=== PATIENT | female | born 1935 | race Caucasian/White ===

== ENCOUNTER 2017-03-20 01:34 | Inpatient (IN) ==
[2017-03-20] MEDS ORDERED: *HR* HYDROmorphone (PF) 1 MG/ML SYRINGE IVP PRN (04:29)
[2017-03-20] MEDS ORDERED: Naloxone 0.4 MG/ML INJ IVP PRN (04:30)
[2017-03-20] MEDS ORDERED: Ondansetron 4 MG/2 ML VIAL IVP PRN (04:30)
--- NOTE | 2017-03-20 05:12 | Internal Med History&Physical ---
<Kishor Purdy - Last Filed: 03/20/17 05:10> Date of Encounter: 03/20/17 Time of Encounter: 05:10 Assessment and Plan (1) Anemia Current visit: Yes Status: Acute Records reviewed from [facility] emergency department showed hemoglobin of 5.9 with an MCV of 89. Hemoccult stool was checked at that time and was found to be negative. CT scan of the abdomen is unremarkable. She received 1 unit of PRBCs in the emergency department, will recheck CBC and transfuse if needed. At this point the source of the patient's anemia is unknown. She does have a history of iron deficiency anemia and takes iron supplementation. Will recheck CBC on arrival. We will initiate anemia workup including repeat Hemoccult stool (patient deferred rectal exam) and will check B12, folate, haptoglobin, LDH, hepatic panel, PTT, PT/INR, TSH, iron panel. Qualifiers: Anemia type: unspecified type Qualified Code(s): D64.9 - Anemia, unspecified (2) CAD (coronary artery disease) Current visit: Yes Status: Acute Stable. No chest pain noted. No EKG changes. Patient states her last stent was approximately 15 years ago. We will hold Plavix at this time. Qualifiers: Coronary Disease-Associated Artery/Lesion type: [place] artery [place] vs. transplanted heart: [place] heart Associated angina: without angina Qualified Code(s): I25.10 - Atherosclerotic heart disease of [place] coronary artery without angina pectoris (3) CKD (chronic kidney disease) Current visit: Yes Status: Acute Creatinine 1.63 in the Emergency department, baseline unknown but records to show that she is CKD stage III. Good urine output, follow creatinine. Anemia of chronic kidney disease could be contributing to the patient's anemia however the degree of anemia is much more substantial than would be expected in anemia of chronic kidney disease. Qualifiers: Chronic kidney disease stage: stage 3 (moderate) Qualified Code(s): N18.3 - Chronic kidney disease, stage 3 (moderate) (4) Nephrolithiasis Current visit: Yes Status: Acute Patient has known kidney stone with microscopic hematuria. No gross hematuria noted. Patient has seen urology recently and she is attempting the past stone on her own. (5) GERD (gastroesophageal reflux disease) Current visit: Yes Status: Acute Continue PPI Qualifiers: Esophagitis presence: esophagitis presence not specified Qualified Code(s) : K21.9 - Gastro-esophageal reflux disease without esophagitis (6) Type 2 diabetes mellitus Current visit: Yes Status: Acute Patient takes glipizide at home. We will hold this and institute sliding scale coverage. Qualifiers: Diabetes mellitus complication status: with unspecified complications Diabetes mellitus usp insulin use: without usp use Qualified Code( s): E11.8 - Type 2 diabetes mellitus with unspecified complications (7) Hypothyroidism Current visit: Yes Status: Acute Check TSH. Continue Synthroid. Qualifiers: Hypothyroidism type: unspecified Qualified Code(s): E03.9 - Hypothyroidism , unspecified (8) Hypertension Current visit: Yes Status: Acute Stable this time. Continue home medications. Qualifiers: Hypertension type: essential hypertension Qualified Code(s): I10 - Essential (primary) hypertension (9) Chronic back pain Current visit: Yes Status: Acute Patient on chronic NSAID use with meloxicam daily. We will hold meloxicam and treat with Dilaudid 0.5 mg every 4 hours when necessary. Qualifiers: Back pain location: low back pain Back pain laterality: unspecified Sciatica presence: without sciatica Qualified Code(s): M54.5 - Low back pain; G89.29 - Other chronic pain (10) DVT prophylaxis Current visit: Yes Status: Acute EPCDs Internal Medicine - H&P: HPI Chief complaint: Weakness Admitted From: Emergency Dept Plans for Post Hospital Care: Home History of present illness: Ms. Alexander is a 82 year old female with history of CAD, CKD, hypertension, hypothyroidism presents with generalized weakness. Patient states she has been feeling weaker and weaker over the last weeks to months. She reports this is generalized. She states she has never felt like this before. She states she has had episodes of loose stools after taking laxatives and those have been black but her stools have been black for several months while taking iron pills. She reports a couple of episodes of nausea but denies any vomiting, hematemesis, hematochezia. She denies any abdominal pain or weight loss, chest pain, shortness of breath, dysuria, hematuria. She does report that she has chronic back pain. She denies any recent falls, numbness, tingling. She reports having a colonoscopy and EGD done approximately 4 years ago and they found 1 colonic polyp but otherwise no abnormalities. Past Med Surg Social Fam HX - Past Medical History Medical history: diabetes, hypertension, myocardial infarction, thyroid disease - Past Surgical History Surgical History: angioplasty/stent - Social History Smoking Status: Never smoker Smokeless Tobacco Status: No Alcohol use: none Drug use: none - Family History Mother Name: Jen Living Status: Age at : 80 Cause of : Diabetes complications Hx Family Cardiac Disorders: Yes Hx Family Respiratory Disorders: No Hx Family Cancer: Yes Hx Family GI Disorders: No Hx Family Genitourinary Disorders: No Hx Family Endocrine Disorder: Yes Hx Family Musculoskeletal Disorders: No Hx Family Neuromuscular Disorders: No Hx Family Neurologic Disorders: No Hx Family HEENT Disorders: No Hx Family Autoimmune Disorders: No Hx Family Reproductive Disorders: No Hx Family Psychosocial Disorders: No Hx Family Medical Disorders: Yes Internal Medicine - H&P: Meds Amlodipine Besylate [Amlodipine Besylate] 10 mg PO DAILY 03/20/17 [History] Antiox #11/Om3/Dha/Epa/Lut/Linh [50+ Adult Eye Health Softgel] 1 each PO BID [History] Carvedilol [Coreg] 25 mg PO BID 03/20/17 [History] Clopidogrel [Plavix] 75 mg PO DAILY 03/20/17 [History] Ergocalciferol (VITAMIN D2) [Vitamin D2] 50,000 unit PO QWEEK 03/20/17 [History] GlipiZIDE [Glipizide Xl] 2.5 mg PO BID 03/20/17 [History] Iron 180 mg PO BID 03/20/17 [History] Isosorbide MONOnitrate (24 HR) [Imdur] 60 mg PO DAILY 03/20/17 [History] Levothyroxine [Synthroid] 25 mcg PO DAILY 03/20/17 [History] Meloxicam 15 mg PO DAILY 03/20/17 [History] Omeprazole 20 mg PO DAILY 03/20/17 [History] Simvastatin [Zocor] 10 mg PO DAILY 03/20/17 [History] Valsartan [Diovan] 160 mg PO DAILY 03/20/17 [History] Allergies No Known Allergies Allergy (Verified 03/08/17 23:04) All Systems PM: A 10-system review of systems was performed and is negative for pertinent findings except as documented above in the HPI. - Constitutional Constitutional: weakness, no chills, no fever(s), no falls, no weight loss - EENT Eyes: no blurry vision, no change in vision Nose, mouth and throat: no sinus pain, no sinus pressure, no sore throat - Cardiovascular Cardiovascular ROS IM: no chest pain, no dyspnea, no edema, no lightheadedness, no syncope - Respiratory Respiratory: no cough, no dyspnea, no hemoptysis, no chest congestion, no excessive phlegm production, no change in phlegm color - Gastrointestinal Gastrointestinal: melena, no abdominal pain, no coffee ground emesis, no diarrhea, no hematemesis, no hematochezia, no nausea, no vomiting - Genitourinary Genitourinary: no dysuria, no hematuria, no menorrhagia, no metrorrhagia, no urinary frequency, no urinary hesitancy, no urinary incontinence, no urinary urgency - Musculoskeletal Musculoskeletal ROS IM: back pain, no neck pain, no numbness, no tingling - Integumentary Integumentary IM: no erythema, no new lesions, no rash - Neurological Neurological ROS: weakness, no dizziness, no frequent falls, no numbness, no tingling - Psychiatric Psychiatric: no confusion - Endocrine Endocrine IM: no polydipsia, no polyuria - Hematologic/Lymphatic Hematologic/Lymphatic: no easy bleeding, no easy bruising, no lymphadenopathy - Constitutional Vitals: Temp Pulse Resp BP Pulse Ox 98.1 F 65 16 121/56 96 03/20/17 03:27 03/20/17 03:27 03/20/17 03:27 03/20/17 03:27 03/20/17 03:27 General appearance: Present: A&O X 3, pleasant, no acute distress Exam: Patient appears generally pale - Head Head exam: Present: atraumatic, normal inspection, normocephalic - Eye Eye exam: Present: EOMI, PERRL Additional comments: Conjunctival pallor - ENT ENT exam: Present: mucous membranes dry, normal oropharynx - Neck Neck exam general surgery: Present: full ROM - Respiratory Respiratory exam: Present: CTAB. Absent: rales, rhonchi, wheezes - Cardiovascular Cardiovascular exam: Present: RRR. Absent: gallop, rubs, systolic murmur - GI/Abdominal GI/Abdominal exam: Present: normal bowel sounds, soft. Absent: distended, tenderness - Rectal Rectal exam: Present: deferred - Extremities Exam Extremities exam: Present: warm. Absent: pedal edema, tenderness - Neurological Exam Neurological exam: Present: alert, CN II-XII intact, oriented X3, no focal deficits - Psychiatric Psychiatric exam: Absent: anxious - Skin Skin exam: Present: pallor <Fanta Dohertylizzierodrigo R - Last Filed: 03/20/17 08:11> Date of Encounter: 03/20/17 Internal Medicine - H&P: HPI History of present illness: Ms. Alexander is a 82 year old female All Systems PM: A 10-system review of systems was performed and is negative for pertinent findings except as documented above in the HPI. - Constitutional Vitals: Temp Pulse Resp BP Pulse Ox 98.1 F 76 18 154/66 98 03/20/17 06:44 03/20/17 06:44 03/20/17 06:44 03/20/17 06:44 03/20/17 06:44 Internal Med - H&P Results - Labs CBC & Chem 7: 03/20/17 05:36 03/20/17 05:36 Labs: Short CBC 03/20/17 Range/Units 05:36 WBC 11.3 H (4.3-11.1) K/mcL Hgb 6.2 L (11.5-15.4) g/dL Hct 19.2 L (35.3-44.9) % Plt Count 159 (140-400) K/mcL Neutrophils # 8.1 (1.6-8.9) K/mcL BMP 03/20/17 05:36 Sodium 136 Potassium 5.4 H Chloride 111 H Carbon Dioxide 21 BUN 69 H Glucose 129 H Calcium 8.1 L Liver Function 03/20/17 Range/Units 05:36 Total Bilirubin 0.3 (0.2-1.2) mg/dL Direct Bilirubin 0.1 (0.0-0.5) mg/dL AST 7 (5-34) Units/L ALT 7 (0-55) Units/L Alkaline Phosphatase 55 (38-126) Units/L Albumin 2.4 L (3.5-5.0) g/dL - Attending Attestation I performed history and physical examination of the patient and discussed management with the Resident. I reviewed the Residents note and agree with documented findings and plan of care. 82 Y/F with h/o CAD, CKD, hypertension, hypothyroidism. She has h/o gradually progressing weakness. h/o chronic black stools. Last night she looked vary pale and had near syncope (per the daughter). She was evaluated in the ER at [facility] and was noted to have Hgb of 5.9. Fecal occult blood was negative. Patient is transferred for further care per patients request. No abdominal pain reported O/E: Patient had present. Lungs clear to auscultation. Cardiac regular rate and rhythm. Abdomen soft and nontender. Labs reviewed. CT scan result reviewed. A/P: Normocytic anemia: Recheck hemoglobin, fecal occult blood. Transfuse PRBC, if Hgb is less than 8. Consider GI versus hematology-oncology consult, depending on fecal occult blood result.
[2017-03-20] MEDS ORDERED: *HR* Dextrose 50 % in Water (Syg) 50 ML SYRINGE IVP PRN (05:28)
[2017-03-20] MEDS ORDERED: Dextrose Gel 15 GM PO PRN ×2 (05:28)
[2017-03-20] MEDS ORDERED: D5% in Water 1,000 ML IVC PRN (05:28)
[2017-03-20 05:48] LABS: Basophils % 0.1 %; Eosinophils # 0.1 K/mcL (0.0-0.6); Eosinophils % 0.4 %; Hematocrit 19.2 % (35.3-44.9); Hemoglobin 6.2 g/dL (11.5-15.4); Immature Granulocytes % 0.6 % (0-4); Lymphocytes # 2.3 K/mcL (0.6-4.6); Lymphocytes % 20.5 %; Mean Corpuscular HGB Conc 32.3 g/dL (31.6-35.5); Mean Corpuscular Hemoglobin 29.7 pg (28.0-33.3); Mean Corpuscular Volume 91.9 fL (83.0-100.0); Mean Platelet Volume 11.3 fL (9.4-12.4); Monocytes # 0.8 K/mcL (0.0-1.3); Monocytes % 6.7 %; Neutrophils # 8.1 K/mcL (1.6-8.9); Platelet Count 159 K/mcL (140-400); Red Blood Count 2.09 M/mcL (3.82-4.97); Red Cell Distribution Width 14.7 % (11.5-14.5); Retculocyte # 0.06 M/mcL (0.05-0.10); Reticulocyte % 2.7 % (1.6-2.8); Segmented Neutrophils % 71.7 %
[2017-03-20 05:51] LABS: Prothrombin Time 11.1 Seconds (9.4-12.1)
[2017-03-20 05:54] LABS: Activated Partial Thrombo Time 22.2 Seconds (26.0-36.0)
[2017-03-20] MEDS: Insulin LISPRO 300 UNITS/3 ML VIAL SQ SCH ×3 (05:57→18:30)
[2017-03-20] MEDS: Pantoprazole 40 MG VIAL IVP SCH (05:57)
[2017-03-20] MEDS: Levothyroxine 25 MCG TABLET PO SCH (05:57)
[2017-03-20] MEDS ORDERED: Pantoprazole 40 MG VIAL IVP SCH (06:00)
[2017-03-20 06:02] LABS: Albumin 2.4 g/dL (3.5-5.0); Albumin/Globulin Ratio 0.8 (1.1-2.2); Bilirubin,Direct 0.1 mg/dL (0.0-0.5); Bilirubin,Indirect 0.2 mg/dL (0.0-1.2); Bilirubin,Total 0.3 mg/dL (0.2-1.2); Calcium 8.1 mg/dL (8.6-10.8); Globulin 3.1 g/dL (2.4-3.5); Magnesium 1.6 mg/dL (1.6-2.6); Potassium 5.4 mEq/L (3.5-4.5); Total Protein 5.5 g/dL (6.0-8.3)
[2017-03-20 06:23] LABS: Thyroid Stimulating Hormone 1.725 mcIU/mL (0.350-4.840)
[2017-03-20 07:02] LABS: Folate 8.1 ng/mL (7.0-31.4)
[2017-03-20] MEDS: Isosorbide MONOnitrate (24 HR) 60 MG TAB.ER.24H PO SCH (08:25)
[2017-03-20] MEDS: amLODIPine 5 MG TABLET PO SCH (08:25)
[2017-03-20] MEDS: Valsartan 160 MG TABLET PO SCH (08:25)
--- NOTE | 2017-03-20 09:38 | Event Note ---
Date of Encounter: 03/20/17 Time of Encounter: 08:45 Patient is an 82y/o female with PMH of CAD, CKD, HTN, Hypothyroidism who is admitted for management of symptomatic anemia. Patient seen and examined with daughter present at bedside. Pt is AAO x 3 but reports of feeling weak and is pale appearing. She denies any specific symptoms apart from generalized weakness. Repeat H&H noted after one unit PRBC transfusion. Will transfuse 2 more units of PRBC. Follow up stool occult and iron studies. Patient already on iron supplements at home. The stool occult prior to patient's transfer was negative. Noted to be hyperkalemic, will obtain EKG and one dose of Kayexalate to be given. Pt denies any discomfort at this time. Will repeat H&H after PRBC transfusion and continue to closely monitor.
[2017-03-20 10:26] LABS: Bilirubin,Urine Negative (Negative); Blood,Urine Trace (Negative); Clarity,Urine Clear (Clear); Color,Urine Yellow (Yellow); Glucose,Urine (UA) Normal (Normal); Ketones,Urine Negative (Negative); Leukocyte Esterase,Urine Trace (Negative); Nitrite,Urine Negative (Negative); Protein,Urine Negative (Neg-Trace); Specific Gravity,Urine 1.016 (1.010-1.025); Urobilinogen,Urine Normal (Normal)
[2017-03-20 10:28] LABS: Bacteria,Urine None Seen per hpf (None-Few); Hyaline Casts,Urine None Seen per lpf (None-Few); RBC,Urine 0-3 per hpf (0-3); Squamous Epithelial Cell,Urine Moderate per lpf (None-Few); WBC,Urine 0-3 per hpf (0-3)
[2017-03-20] MEDS ORDERED: 0.9 % Sodium Chloride 250 ML ONE (11:46)
[2017-03-20 20:23] LABS: Basophils % 0.2 %; Eosinophils # 0.1 K/mcL (0.0-0.6); Eosinophils % 0.8 %; Hematocrit 24.2 % (35.3-44.9); Immature Granulocytes % 0.8 % (0-4); Lymphocytes # 3.2 K/mcL (0.6-4.6); Lymphocytes % 26.1 %; Mean Corpuscular HGB Conc 33.1 g/dL (31.6-35.5); Mean Corpuscular Hemoglobin 28.7 pg (28.0-33.3); Mean Corpuscular Volume 86.7 fL (83.0-100.0); Mean Platelet Volume 11.2 fL (9.4-12.4); Monocytes # 1.3 K/mcL (0.0-1.3); Monocytes % 10.1 %; Neutrophils # 7.7 K/mcL (1.6-8.9); Platelet Count 161 K/mcL (140-400); Red Blood Count 2.79 M/mcL (3.82-4.97); Red Cell Distribution Width 14.8 % (11.5-14.5)
[2017-03-21] MEDS: Insulin LISPRO 300 UNITS/3 ML VIAL SQ SCH ×5 (00:25→21:43)
[2017-03-21 05:08] LABS: Basophils % 0.3 %; Eosinophils # 0.2 K/mcL (0.0-0.6); Eosinophils % 1.5 %; Hematocrit 23.5 % (35.3-44.9); Hemoglobin 7.9 g/dL (11.5-15.4); Immature Granulocytes % 0.7 % (0-4); Lymphocytes # 2.5 K/mcL (0.6-4.6); Lymphocytes % 22.6 %; Mean Corpuscular HGB Conc 33.6 g/dL (31.6-35.5); Mean Corpuscular Hemoglobin 29.4 pg (28.0-33.3); Mean Corpuscular Volume 87.4 fL (83.0-100.0); Mean Platelet Volume 11.5 fL (9.4-12.4); Monocytes # 0.8 K/mcL (0.0-1.3); Neutrophils # 7.6 K/mcL (1.6-8.9); Platelet Count 162 K/mcL (140-400); Red Blood Count 2.69 M/mcL (3.82-4.97); Red Cell Distribution Width 15.8 % (11.5-14.5); Segmented Neutrophils % 67.9 %
[2017-03-21 05:20] LABS: BUN/Creatinine Ratio 49 (6-26); Calcium 8.1 mg/dL (8.6-10.8); Carbon Dioxide 19 mEq/L (19-29); Chloride 116 mEq/L (98-109); Glucose 128 mg/dL (70-99); Magnesium 1.7 mg/dL (1.6-2.6); Osmolality,Calculated 309 (280-300); Phosphorous 3.4 mg/dL (2.3-4.7); Sodium 142 mEq/L (136-145); eGFR For African Americans > 60 (> 60); eGFR For Non-African Americans 51 (> 60)
[2017-03-21 05:21] LABS: Potassium 4.1 mEq/L (3.5-4.5)
[2017-03-21 05:22] LABS: Blood Urea Nitrogen 51 mg/dL (7-20)
[2017-03-21] MEDS: Pantoprazole 40 MG VIAL IVP SCH (05:39)
[2017-03-21] MEDS: Levothyroxine 25 MCG TABLET PO SCH (05:39)
--- NOTE | 2017-03-21 08:25 | Oncology Inp Consult Note ---
<Ralph Merino - Last Filed: 03/21/17 13:43> Date of Encounter: 03/21/17 Time of Encounter: 08:25 Assessment and Plan (1) Anemia Status: Acute Assessment and plan: Since 2006, looking back at her previous lab results patient has been having anemia with hemoglobin around 11-10 however for this time she came in with hemoglobin of 6.2, status post 2 units of PRBC transfusion, hemoglobin improved to 8.0, no signs of active bleeding at this time, haptoglobin is elevated, no significant coagulopathy, normal platelet count, MCV is normal, reticulocyte hemoglobin equivalent is 33.4, elevated ferritin level, iron level is normal, low LDH level, TSH was normal, folate level was normal but low vitamin B12 level , currently getting B12 supplementation by mouth, chronic kidney disease stage III since 2006, stool occult blood test was negative, last colonoscopy/EGD was 4 years ago and the results showed no malignancy or bleeding ulcers. GI was consulted as well, plan is to have EGD/colonoscopy tomorrow, if all testing results come back negative, patient may need a bone marrow biopsy for further investigation for her anemia. Qualifiers: Anemia type: unspecified type Qualified Code(s): D64.9 - Anemia, unspecified - Data of Consult Patient: new to practice Consult date: 03/21/17 Requesting Physician: Tracey Perales MD Primary Care Provider: PCP NO - Consult Narrative Reason for consult: Anemia History of present illness: Ms. Alexander is a 82 year old female with a history of coronary artery disease, chronic anemia, hypertension, hypothyroidism who presented to ER with chief complaint of generalized weakness. Patient states that this started several weeks ago and it was getting worse to the point that her daughter took her to the ER last night. Currently patient is taking iron pill and her stool has been black while she is taking this medication, but she denies episode of hematemesis, hematochezia or hematuria. In the ER patient was found to have a hemoglobin of 6.2 and so far she received 2 units of PRBC during this hospital stay and her hemoglobin improved to 8.0. Patient denies recent history of significant weight loss, night sweats, personal/family history of cancers. Hematology/oncology was consulted for further recommendation for her symptomatic anemia. Past Med Surg Social Fam HX - Past Medical History Medical history: diabetes, hypertension, myocardial infarction, thyroid disease - Past Surgical History Surgical History: angioplasty/stent - Social History Smoking Status: Never smoker Smokeless Tobacco Status: No Alcohol use: none Drug use: none - Family History Mother Name: Jen Living Status: Age at : 80 Cause of : Diabetes complications Hx Family Cardiac Disorders: Yes Hx Family Respiratory Disorders: No Hx Family Cancer: Yes Hx Family GI Disorders: No Hx Family Genitourinary Disorders: No Hx Family Endocrine Disorder: Yes Hx Family Musculoskeletal Disorders: No Hx Family Neuromuscular Disorders: No Hx Family Neurologic Disorders: No Hx Family HEENT Disorders: No Hx Family Autoimmune Disorders: No Hx Family Reproductive Disorders: No Hx Family Psychosocial Disorders: No Hx Family Medical Disorders: Yes Medications and Allergies Allopurinol [Zyloprim 300 MG] 300 mg PO DAILY 03/20/17 [History] Amlodipine Besylate [Amlodipine Besylate] 10 mg PO DAILY 03/20/17 [History] Antiox #11/Om3/Dha/Epa/Lut/Linh [50+ Adult Eye Health Softgel] 1 cap PO BID 03/20 [History] Carvedilol [Coreg] 25 mg PO BID 03/20/17 [History] Clopidogrel [Plavix] 75 mg PO DAILY 03/20/17 [History] Ergocalciferol (VITAMIN D2) [Vitamin D2] 50,000 unit PO QWEEK 03/20/17 [History] Fenofibrate Nanocrystallized [Triglide] 160 mg PO DAILY 03/20/17 [History] Gabapentin [Neurontin] 300 mg PO HS 03/20/17 [History] GlipiZIDE [Glipizide Xl] 5 mg PO BID 03/20/17 [History] Iron Polysaccharide Complex [Pro Fe] 180 mg PO DAILY 03/20/17 [History] Isosorbide MONOnitrate (24 HR) [Imdur] 60 mg PO DAILY 03/20/17 [History] Levothyroxine [Synthroid] 25 mcg PO DAILY 03/20/17 [History] Meloxicam 15 mg PO DAILY 03/20/17 [History] Nitroglycerin [Nitrostat] 0.4 mg SL AD PRN 03/20/17 [History] Omeprazole 20 mg PO DAILY 03/20/17 [History] Ondansetron ODT [Zofran ODT] 4 mg SL Q8HR PRN 03/20/17 [History] Polyethylene Glycol 3350 [Purelax] 17 gm PO DAILY 03/20/17 [History] Promethazine [Phenergan] 25 mg PO Q8HR PRN 03/20/17 [History] Ranitidine HCl [Heartburn Relief] 150 mg PO BID 03/20/17 [History] Simvastatin [Zocor] 10 mg PO DAILY 03/20/17 [History] Valsartan [Diovan] 160 mg PO DAILY 03/20/17 [History] Allergies acetaminophen [From Darvocet-N] Adverse Reaction (Verified 03/20/17 14:49) Nausea atorvastatin [From Lipitor] Adverse Reaction (Verified 03/20/17 14:49) See Comments "Tore my ribs up" propoxyphene [From Darvocet-N] Adverse Reaction (Verified 03/20/17 14:49) Nausea Review of systems: Patient admits worsening generalized weakness and fatigue, denies headache, fever, chill, recent weight loss, night sweats, hemoptysis, hematemesis, hematochezia, hematuria, chest pain, productive cough, nausea/vomiting, abdominal pain, diarrhea or dysuria. Oncology - Exam - Constitutional Vitals: Temp Pulse Resp BP Pulse Ox 98.5 F 70 16 114/62 94 03/21/17 05:13 03/21/17 05:13 03/21/17 05:13 03/21/17 05:13 03/21/17 05:13 General appearance: average body habitus, cooperative, no acute distress - Head Head exam: Present: atraumatic, normal inspection, normocephalic - Eye Eye exam: Present: EOMI, PERRL Pupils: Present: PERRL - ENT ENT exam: Present: mucous membranes dry, normal exam - Neck Neck exam: Present: normal inspection. Absent: lymphadenopathy, tenderness - Respiratory Respiratory exam: Present: CTAB. Absent: rales, respiratory distress, wheezes - Cardiovascular Cardiovascular exam: Present: RRR, +S1, +S2. Absent: clicks, rubs, systolic murmur - GI/Abdominal GI/Abdominal exam: Present: normal bowel sounds, soft. Absent: distended, firm , guarding, mass, rebound, rigid, tenderness - Extremities Exam Extremities exam: Present: normal inspection. Absent: calf tenderness, tenderness - Neurological Exam Neurological exam: Present: alert, CN II-XII intact, oriented X3, no focal deficits. Absent: altered, facial droop - Skin Additional comments: Chronically pale per her daughter Oncology - Results - Labs Labs: Short CBC 03/20/17 03/21/17 Range/Units 20:04 04:41 WBC 12.4 H 11.2 H (4.3-11.1) K/mcL Hgb 8.0 L D 7.9 L (11.5-15.4) g/dL Hct 24.2 L 23.5 L (35.3-44.9) % Plt Count 161 162 (140-400) K/mcL Neutrophils # 7.7 7.6 (1.6-8.9) K/mcL BMP 03/20/17 03/21/17 05:36 04:41 Sodium 142 Potassium 4.1 D Chloride 116 H Carbon Dioxide 19 BUN 51 H D Creatinine 1.25 H 1.04 Glucose 128 H Calcium 8.1 L Urine 03/20/17 Range/Units 09:50 Urine Color Yellow (Yellow) Urine Clarity Clear (Clear) Urine pH 6.0 (5.0-8.0) pH Units Ur Specific [place] 1.016 (1.010-1.025) Urine Protein Negative (Neg-Trace) mg/dL Urine Glucose (UA) Normal (Normal) mg/dL Consult Discharge Plan - Plan Referrals: NO,PCP [Primary Care Provider] - <Linda Grewal - Last Filed: 03/21/17 17:42> Date of Encounter: 03/21/17 - Data of Consult Requesting Physician: Tracey Perales MD Primary Care Provider: PCP NO - Consult Narrative History of present illness: Patient seen and examined by me bedside with family, with progressive weakness patient has been to ER 2 and was not noted to have such a low hemoglobin was hospitalized with profound anemia status post red blood cell transfusion hemoglobin has improved to 7.9. Anemia workup has shown normal ferritin she will undergo GI procedure to rule out acute bleeding, B12 deficiency noted. Rule out pernicious anemia. B12 IM injection has been given. Patient denies any abdominal pain melena or hematochezia or alteration in bowel habits. Plan to monitor lab works with B12 replacement. Order serum protein electrophoresis. Peripheral smear review bone marrow aspiration and biopsy at a later date depending on labs/response. I have seen and examined patient myself, reviewed history physical exam findings as outlined above, discussed and agree with assessment and plan findings per Dr Ralph Merino's dictation. Oncology - Exam - Constitutional Vitals: Temp Pulse Resp BP Pulse Ox 98.5 F 72 18 132/72 95 03/21/17 15:05 03/21/17 15:05 03/21/17 15:05 03/21/17 15:05 03/21/17 15:05 Oncology - Results - Labs Labs: Short CBC 03/20/17 03/21/17 Range/Units 20:04 04:41 WBC 12.4 H 11.2 H (4.3-11.1) K/mcL Hgb 8.0 L D 7.9 L (11.5-15.4) g/dL Hct 24.2 L 23.5 L (35.3-44.9) % Plt Count 161 162 (140-400) K/mcL Neutrophils # 7.7 7.6 (1.6-8.9) K/mcL BMP 03/21/17 04:41 Sodium 142 Potassium 4.1 D Chloride 116 H Carbon Dioxide 19 BUN 51 H D Creatinine 1.04 Glucose 128 H Calcium 8.1 L
[2017-03-21] MEDS: Isosorbide MONOnitrate (24 HR) 60 MG TAB.ER.24H PO SCH (09:09)
[2017-03-21] MEDS: Valsartan 160 MG TABLET PO SCH (09:09)
[2017-03-21] MEDS: amLODIPine 5 MG TABLET PO SCH (09:09)
[2017-03-21] MEDS: Cyanocobalamin (B-12) 1,000 MCG TABLET PO SCH (09:17)
[2017-03-21] MEDS ORDERED: *HR* OxyCODONE Immed Rel 5 MG TABLET PO PRN (09:47)
--- NOTE | 2017-03-21 09:48 | Internal Med Progress Note ---
Date of Encounter: 03/21/17 Time of Encounter: 09:37 - Subjective Interval history: Patient seen and examined with daughter present at bedside. Patient resting comfortably in bed and reports of feeling better. States she had colonoscopy in the past about 3-4 years ago with polyp resection. Denies any prior history of severe anemia requiring blood transfusions. Noted to have negative stool occult and iron studies are not consistent with iron deficiency anemia Noted to have low vitamin B12 level and started on PO Vitamin BI12. Assessment and Plan (1) Anemia Current visit: Yes Status: Acute Reported history of iron deficiency anemia however iron studies not consistent with iron def anemia Noted to have B12 def, will start with PO Vit B12 supplementation Hematology evaluation requested Given the severity of anemia, will obtain GI evaluation and obtain EGD and colonoscopy in am to rule out GI bleed clear liquid diet today with bowel prep and NPO after midnight Qualifiers: Anemia type: unspecified type Qualified Code(s): D64.9 - Anemia, unspecified (2) CAD (coronary artery disease) Current visit: Yes Status: Acute No signs of angina present at this time continue home medications continue to hold Plavix until further GI evaluation Qualifiers: Coronary Disease-Associated Artery/Lesion type: [place] artery [place] vs. transplanted heart: [place] heart Associated angina: without angina Qualified Code(s): I25.10 - Atherosclerotic heart disease of [place] coronary artery without angina pectoris (3) CKD (chronic kidney disease) Current visit: Yes Status: Acute Renal function at baseline, continue to monitor Qualifiers: Chronic kidney disease stage: stage 3 (moderate) Qualified Code(s): N18.3 - Chronic kidney disease, stage 3 (moderate) (4) Nephrolithiasis Current visit: Yes Status: Acute Patient has known kidney stone with microscopic hematuria. No gross hematuria noted. Patient has seen urology recently and she is attempting the past stone on her own. No acute discomfort reported at this time (5) GERD (gastroesophageal reflux disease) Current visit: Yes Status: Acute Continue PPI Qualifiers: Esophagitis presence: esophagitis presence not specified Qualified Code(s) : K21.9 - Gastro-esophageal reflux disease without esophagitis (6) Type 2 diabetes mellitus Current visit: Yes Status: Acute Continue sliding scale insulin algorithm and monitor FS and BG Qualifiers: Diabetes mellitus complication status: with unspecified complications Diabetes mellitus technical support director insulin use: without technical support director use Qualified Code( s): E11.8 - Type 2 diabetes mellitus with unspecified complications (7) Hypothyroidism Current visit: Yes Status: Acute Continue Synthroid. Qualifiers: Hypothyroidism type: unspecified Qualified Code(s): E03.9 - Hypothyroidism , unspecified (8) Hypertension Current visit: Yes Status: Acute BP within acceptable range, continue home medications Will continue to monitor BP Qualifiers: Hypertension type: essential hypertension Qualified Code(s): I10 - Essential (primary) hypertension (9) Chronic back pain Current visit: Yes Status: Acute Reported history but in no distress at this time noted to be on chronic NSAID use with Meloxicam, will hold at this time Oxycodone IR PRN pain Qualifiers: Back pain location: low back pain Back pain laterality: unspecified Sciatica presence: without sciatica Qualified Code(s): M54.5 - Low back pain; G89.29 - Other chronic pain (10) DVT prophylaxis Current visit: Yes Status: Acute EPCDs - Constitutional Vitals: Temp Pulse Resp BP Pulse Ox 98.0 F 75 18 134/68 96 03/21/17 09:01 03/21/17 09:01 03/21/17 09:01 03/21/17 09:01 03/21/17 09:01 General appearance: Present: A&O X 3, pleasant, no acute distress - Head Head exam: Present: atraumatic, normocephalic - Eye Eye exam: Present: normal appearance, conjuntiva pink, sclera anicteric - Respiratory Respiratory exam: Present: CTAB. Absent: accessory muscle use, rales, rhonchi, wheezes - Cardiovascular Cardiovascular exam: Present: RRR, +S1, +S2. Absent: diastolic murmur, gallop, rubs, systolic murmur - GI/Abdominal GI/Abdominal exam: Present: normal bowel sounds, soft, no peritoneal signs. Absent: distended, tenderness - Extremities Exam Extremities exam: Present: warm, radial pulses palpable and symetrical. Absent : calf tenderness - Neurological Exam Neurological exam: Present: alert, oriented X3 - Psychiatric Psychiatric exam: Present: normal affect, normal mood Internal Medicine: Result - Labs CBC & Chem 7: 03/21/17 04:41 03/21/17 04:41 Labs: Short CBC 03/20/17 03/21/17 Range/Units 20:04 04:41 WBC 12.4 H 11.2 H (4.3-11.1) K/mcL Hgb 8.0 L D 7.9 L (11.5-15.4) g/dL Hct 24.2 L 23.5 L (35.3-44.9) % Plt Count 161 162 (140-400) K/mcL Neutrophils # 7.7 7.6 (1.6-8.9) K/mcL BMP 03/20/17 03/21/17 05:36 04:41 Sodium 142 Potassium 4.1 D Chloride 116 H Carbon Dioxide 19 BUN 51 H D Creatinine 1.25 H 1.04 Glucose 128 H Calcium 8.1 L Urine 03/20/17 Range/Units 09:50 Urine Color Yellow (Yellow) Urine Clarity Clear (Clear) Urine pH 6.0 (5.0-8.0) pH Units Ur Specific [place] 1.016 (1.010-1.025) Urine Protein Negative (Neg-Trace) mg/dL Urine Glucose (UA) Normal (Normal) mg/dL - ABG Interpretation ABG results: PT/INR, D-dimer PT 11.1 Seconds (9.4-12.1) 03/20/17 05:36 - VTE Documentation of Mechanical Device: Intermittent pneumatic compression device Consult Discharge Plan - Plan Referrals: NO,PCP [Primary Care Provider] -
--- NOTE | 2017-03-21 10:57 | Electrocardiograph Report ---
[place] [id number] Test Date: 2017-03-20 Pat Name: Evelyne Alexander Department: 112 Room: 2A13 Gender: F Audio Visual Design Engineer: [facility] : 1935 Requested By: Tracey Perales Order Number: [id number] Reading MD: Hossein Robin MD Measurements Intervals [place] Rate: 77 P: 16 CT: 187 QRS: -31 QRSD: 92 T: 72 QT: 388 QTc: 420 Interpretive Statements SINUS RHYTHM WITH SINUS ARRHYTHMIA MARKED LEFT AXIS DEVIATION Electronically Signed On 03-21-2017 10:54:57 EDT by Hossein Robin MD
[2017-03-21] MEDS ORDERED: Insulin LISPRO 300 UNITS/3 ML VIAL SQ SCH (12:00)
--- NOTE | 2017-03-21 12:59 | Gastroenterology Consult Note ---
<Kishor Collins Jose - Last Filed: 03/21/17 12:56> Date of Encounter: 03/21/17 Time of Encounter: 10:35 - Assessment and plan (1) Anemia Current Visit: Yes Status: Acute Assessment and plan: Hgb 6.2 on admission and 7.9 this AM. No melena or hematochezia noted. Iron 158 and FOBT negative. Continue to monitor CBC and transfuse PRBC as needed. Plan for EGd and colonoscopy tomorrow. Clear liquid diet today, no red or purple. NPO at midnight. If unable tolerate NuLytely please use MiraLAX prep. If not clear by 6 AM, give 2 tap water enemas. Qualifiers: Anemia type: unspecified type Qualified Code(s): D64.9 - Anemia, unspecified (2) GERD (gastroesophageal reflux disease) Current Visit: Yes Status: Acute Assessment and plan: Continue PPI. Qualifiers: Esophagitis presence: esophagitis presence not specified Qualified Code(s) : K21.9 - Gastro-esophageal reflux disease without esophagitis - Time Spent With Patient Total time spent is greater than 50% in coordination of care (as documented) at patient's floor/unit and/or counseling patient: GI History of Present Illness - Data of Consult Patient: new to practice Consult date: 03/21/17 Requesting Physician: Tracey Perales MD - Consult Narrative Reason for consult: anemia History of present illness: Ms. Alexander is a 82 year old female with PMHx of DM, HTN, CO, CAD, CKD, presented with generalized weakness. Patient states she has been feeling weaker and weaker over the last weeks to months. She states she has had episodes of loose stools after taking laxatives and those have been black but her stools have been black for several months while taking iron pills. She reports a couple of episodes of nausea but denies any vomiting, hematemesis, hematochezia. She denies fever, chills, chest pain, SOB, abdominal pain. We were consulted to evalute her anemia. On admission Hgb 6.2 and this AM Hgb 7.9. Procedures: Colonoscopy 11/26/2013 Dr. Rayo: Diverticulosis and 3 mm tubular adenoma. EGD 11/26/2013 Dr. Rayo: Erythematous duodenopathy. NSAIDs: Meloxicam Anticoagulation: Plavix Past Med Surg Social Fam HX - Past Medical History Medical history: diabetes, hypertension, myocardial infarction, thyroid disease - Past Surgical History Surgical History: angioplasty/stent - Social History Smoking Status: Never smoker Smokeless Tobacco Status: No Alcohol use: none Drug use: none - Family History Mother Name: Jen Living Status: Age at : 80 Cause of : Diabetes complications Hx Family Cardiac Disorders: Yes Hx Family Respiratory Disorders: No Hx Family Cancer: Yes Hx Family GI Disorders: No Hx Family Genitourinary Disorders: No Hx Family Endocrine Disorder: Yes Hx Family Musculoskeletal Disorders: No Hx Family Neuromuscular Disorders: No Hx Family Neurologic Disorders: No Hx Family HEENT Disorders: No Hx Family Autoimmune Disorders: No Hx Family Reproductive Disorders: No Hx Family Psychosocial Disorders: No Hx Family Medical Disorders: Yes - Gastrointestinal Gastrointestinal: Present: as per HPI - Constitutional Constitutional: as per HPI - EENT Eyes: as per HPI Ears: Present: as per HPI Nose, mouth and throat: Present: as per HPI - Cardiovascular Cardiovascular ROS: Present: as per HPI - Respiratory Respiratory IM: Present: as per HPI - Genitourinary Genitourinary: Absent: change in color, Urinary frequency - Neurological ROS Neurological GI: Present: as per HPI - Hematologic/Lymphatic Hematologic/Lymphatic pediatric: Present: as per HPI - Musculoskeletal Musculoskeletal ROS GI: Present: as per HPI - Integumentary Integumentary GI: Present: as per HPI - Psychiatric ROS Psychiatric GI: Present: as per HPI - Endocrine Endocrine IM: Present: as per HPI - Constitutional Vitals: Temp Pulse Resp BP Pulse Ox 98.9 F 72 20 131/70 95 03/21/17 11:46 03/21/17 11:46 03/21/17 11:46 03/21/17 11:46 03/21/17 11:46 General appearance: Present: cooperative, A&O X 3, no acute distress, answers questions appropriately - Head Head exam: Present: atraumatic, normocephalic - Eye Eye exam: Present: normal appearance, sclera anicteric - ENT ENT exam: Present: mucous membranes moist - Neck Neck exam general surgery: Present: normal inspection, trachea midline - Respiratory Respiratory exam: Present: decreased breath sounds, CTAB. Absent: rales, rhonchi, wheezes - Cardiovascular Cardiovascular exam: Present: RRR, +S1, +S2 - GI/Abdominal GI/Abdominal exam: Present: soft, no peritoneal signs. Absent: distended, firm , guarding, tenderness - Rectal Rectal exam: Present: deferred - Extremities Exam Extremities exam: Present: warm - Neurological Exam Neurological exam: Present: no focal deficits - Psychiatric Psychiatric exam: Present: normal affect, normal mood - Skin Skin exam: Present: dry, intact, normal color, warm Results - Labs CBC & Chem 7: 03/21/17 04:41 03/21/17 04:41 Labs: Last Result Calcium 8.1 mg/dL (8.6-10.8) L 03/21/17 04:41 Iron 158 mcg/dL (50-170) 03/20/17 05:36 % Saturation 75 % (15-50) H 03/20/17 05:36 Transferrin 151 mg/dL (180-382) L 03/20/17 05:36 Ferritin 404 ng/ml (5-204) H 03/20/17 05:36 Vitamin B12 119 pg/mL (213-816) L 03/20/17 05:36 Folate 8.1 ng/mL (7.0-31.4) 03/20/17 05:36 Stool Occult Blood Negative (Negative) 03/20/17 09:50 Entire Visit Hgb 7.9 g/dL (11.5-15.4) L 03/21/17 04:41 Hct 23.5 % (35.3-44.9) L 03/21/17 04:41 PT 11.1 Seconds (9.4-12.1) 03/20/17 05:36 Ferritin 404 ng/ml (5-204) H 03/20/17 05:36 Total Bilirubin 0.3 mg/dL (0.2-1.2) 03/20/17 05:36 AST 7 Units/L (5-34) 03/20/17 05:36 ALT 7 Units/L (0-55) 03/20/17 05:36 Folate 8.1 ng/mL (7.0-31.4) 03/20/17 05:36 - ABG ABG results: PT/INR, D-dimer PT 11.1 Seconds (9.4-12.1) 03/20/17 05:36 Consult Discharge Plan - Plan Referrals: NO,PCP [Primary Care Provider] - <Gul,Toña - Last Filed: 03/21/17 18:56> Date of Encounter: 03/21/17 Time of Encounter: 17:35 - Time Spent With Patient Total time spent is greater than 50% in coordination of care (as documented) at patient's floor/unit and/or counseling patient: GI History of Present Illness - Data of Consult Requesting Physician: Tracey Perales MD - Consult Narrative History of present illness: Ms. Alexander is a 82 year old female - Constitutional Vitals: Temp Pulse Resp BP Pulse Ox 98.5 F 72 18 132/72 95 03/21/17 15:05 03/21/17 15:05 03/21/17 15:05 03/21/17 15:05 03/21/17 15:05 Results - Labs CBC & Chem 7: 03/21/17 04:41 03/21/17 04:41 Labs: Last Result Calcium 8.1 mg/dL (8.6-10.8) L 03/21/17 04:41 Iron 158 mcg/dL (50-170) 03/20/17 05:36 % Saturation 75 % (15-50) H 03/20/17 05:36 Transferrin 151 mg/dL (180-382) L 03/20/17 05:36 Ferritin 404 ng/ml (5-204) H 03/20/17 05:36 Vitamin B12 119 pg/mL (213-816) L 03/20/17 05:36 Folate 8.1 ng/mL (7.0-31.4) 03/20/17 05:36 Stool Occult Blood Negative (Negative) 03/20/17 09:50 Entire Visit Hgb 7.9 g/dL (11.5-15.4) L 03/21/17 04:41 Hct 23.5 % (35.3-44.9) L 03/21/17 04:41 Haptoglobin 213 mg/dL (30-200) H 03/20/17 05:36 PT 11.1 Seconds (9.4-12.1) 03/20/17 05:36 Ferritin 404 ng/ml (5-204) H 03/20/17 05:36 Total Bilirubin 0.3 mg/dL (0.2-1.2) 03/20/17 05:36 AST 7 Units/L (5-34) 05/24/17 05:36 ALT 7 Units/L (0-55) 03/20/17 05:36 Folate 8.1 ng/mL (7.0-31.4) 03/20/17 05:36 - ABG ABG results: PT/INR, D-dimer PT 11.1 Seconds (9.4-12.1) 03/20/17 05:36 - Attending Attestation I examined this patient and my medical decision-making was reviewed with the UX DESIGNER/PA/Advanced Practice Nurse/Resident Physician. I agree with the documented findings, disposition and treatment plan as described except to the extent set forth below.
[2017-03-21] MEDS ORDERED: Cyanocobalamin (B-12) 1,000 MCG/ML VIAL IM ONE (15:31)
[2017-03-21] MEDS ORDERED: SODIUM CHLORIDE/NAHCO3/KCL/PEG 4,000 ML SOLN.RECON PO ONE (17:00)
[2017-03-22 04:31] LABS: Basophils % 0.1 %; Eosinophils # 0.1 K/mcL (0.0-0.6); Eosinophils % 1.4 %; Hematocrit 23.2 % (35.3-44.9); Hemoglobin 7.6 g/dL (11.5-15.4); Immature Granulocytes % 0.7 % (0-4); Lymphocytes # 2.5 K/mcL (0.6-4.6); Lymphocytes % 25.7 %; Mean Corpuscular HGB Conc 32.8 g/dL (31.6-35.5); Mean Corpuscular Hemoglobin 29.1 pg (28.0-33.3); Mean Corpuscular Volume 88.9 fL (83.0-100.0); Mean Platelet Volume 10.4 fL (9.4-12.4); Monocytes # 0.9 K/mcL (0.0-1.3); Monocytes % 9.3 %; Platelet Count 158 K/mcL (140-400); Red Blood Count 2.61 M/mcL (3.82-4.97); Red Cell Distribution Width 15.4 % (11.5-14.5); Segmented Neutrophils % 62.8 %
[2017-03-22 04:42] LABS: BUN/Creatinine Ratio 33 (6-26); Calcium 8.3 mg/dL (8.6-10.8); Carbon Dioxide 23 mEq/L (19-29); Chloride 111 mEq/L (98-109); Glucose 114 mg/dL (70-99); Magnesium 1.4 mg/dL (1.6-2.6); Osmolality,Calculated 294 (280-300); Phosphorous 3.1 mg/dL (2.3-4.7); Sodium 139 mEq/L (136-145); eGFR For African Americans > 60 (> 60); eGFR For Non-African Americans > 60 (> 60)
[2017-03-22 04:46] LABS: Blood Urea Nitrogen 28 mg/dL (7-20)
[2017-03-22] MEDS: Levothyroxine 25 MCG TABLET PO SCH (06:20)
[2017-03-22] MEDS: Pantoprazole 40 MG VIAL IVP SCH (06:20)
[2017-03-22] MEDS ORDERED: Magnesium Sulfate 1 GM in D5% in Water 100 ML IVPB ONE (07:18)
[2017-03-22] MEDS ORDERED: Simethicone 40 MG/0.6 ML MLS IR ONE (07:41)
[2017-03-22] MEDS ORDERED: Tetracaine/Benzocaine/Butamben 200MG/SPRAY (100SPY/BOT) MM ONE (07:41)
[2017-03-22] MEDS ORDERED: 0.9 % Sodium Chloride 500 ML IVC SCH (07:45)
[2017-03-22] MEDS ORDERED: *HR* Midazolam HCl 5 MG/5 ML VIAL IVP ONE (07:47)
[2017-03-22] MEDS ORDERED: *HR* FentaNYL (PF) 100 MCG/2 ML VIAL ONE (07:47)
[2017-03-22] MEDS: amLODIPine 5 MG TABLET PO SCH (08:03)
[2017-03-22] MEDS: Cyanocobalamin (B-12) 1,000 MCG TABLET PO SCH (08:03)
[2017-03-22] MEDS: Isosorbide MONOnitrate (24 HR) 60 MG TAB.ER.24H PO SCH (08:03)
[2017-03-22] MEDS: Valsartan 160 MG TABLET PO SCH (08:03)
--- NOTE | 2017-03-22 08:33 | Internal Med Progress Note ---
Date of Encounter: 03/22/17 Time of Encounter: 08:28 - Subjective Interval history: Patient seen and examined with daughter present at bedside. Pt resting comfortably in bed and denies any discomfort at this time. States she feels better overall. Scheduled for EGD and colonoscopy today. Physical therapy evaluated the patient and recommended home health. Patient and daughter are refusing any home health services at this time and state they have enough help at home and will not be needing any additional services after discharge. Assessment and Plan (1) Anemia Current visit: Yes Status: Acute H&H continues to gradually drop No acute bleeding reported Pt scheduled for EGD and colonoscopy today. GI consultation appreciated Will follow up reports Hematology consultation appreciated Pt may need a bone marrow biopsy if EGD and colonoscopy reports are negative for any acute bleeds. Will continue VIt B12 supplementation continue to closely monitor H&h and transfuse as needed Likely d/c in am pending negative test results from EGD and colonoscopy/ clinically stable Qualifiers: Anemia type: unspecified type Qualified Code(s): D64.9 - Anemia, unspecified (2) CAD (coronary artery disease) Current visit: Yes Status: Acute No signs of angina present at this time continue home medications continue to hold Plavix until further GI evaluation Qualifiers: Coronary Disease-Associated Artery/Lesion type: [place] artery [place] vs. transplanted heart: [place] heart Associated angina: without angina Qualified Code(s): I25.10 - Atherosclerotic heart disease of [place] coronary artery without angina pectoris (3) CKD (chronic kidney disease) Current visit: Yes Status: Acute Renal function at baseline, continue to monitor Qualifiers: Chronic kidney disease stage: stage 3 (moderate) Qualified Code(s): N18.3 - Chronic kidney disease, stage 3 (moderate) (4) Nephrolithiasis Current visit: Yes Status: Acute Patient has known kidney stone with microscopic hematuria. No gross hematuria noted. Patient has seen urology recently and she is attempting the past stone on her own. No acute discomfort reported at this time (5) GERD (gastroesophageal reflux disease) Current visit: Yes Status: Acute Continue PPI Qualifiers: Esophagitis presence: esophagitis presence not specified Qualified Code(s) : K21.9 - Gastro-esophageal reflux disease without esophagitis (6) Type 2 diabetes mellitus Current visit: Yes Status: Acute Continue sliding scale insulin algorithm and monitor FS and BG Qualifiers: Diabetes mellitus complication status: with unspecified complications Diabetes mellitus prison insulin use: without prison use Qualified Code( s): E11.8 - Type 2 diabetes mellitus with unspecified complications (7) Hypothyroidism Current visit: Yes Status: Acute Continue Synthroid. Qualifiers: Hypothyroidism type: unspecified Qualified Code(s): E03.9 - Hypothyroidism , unspecified (8) Hypertension Current visit: Yes Status: Acute BP within acceptable range, continue home medications Will continue to monitor BP Qualifiers: Hypertension type: essential hypertension Qualified Code(s): I10 - Essential (primary) hypertension (9) Chronic back pain Current visit: Yes Status: Acute Reported history but in no distress at this time noted to be on chronic NSAID use with Meloxicam, will hold at this time Oxycodone IR PRN pain Qualifiers: Back pain location: low back pain Back pain laterality: unspecified Sciatica presence: without sciatica Qualified Code(s): M54.5 - Low back pain; G89.29 - Other chronic pain (10) DVT prophylaxis Current visit: Yes Status: Acute EPCDs (11) Hypomagnesemia Current visit: Yes Status: Acute Mg supplemented continue to monitor electrolytes and replace as needed - Constitutional Vitals: Temp Pulse Resp BP Pulse Ox 97.6 F 73 16 133/67 95 03/22/17 06:45 03/22/17 06:45 03/22/17 06:45 03/22/17 06:45 03/22/17 06:45 General appearance: Present: A&O X 3, pleasant, no acute distress, obese - Head Head exam: Present: atraumatic, normocephalic - Eye Eye exam: Present: normal appearance, conjuntiva pink, sclera anicteric - Respiratory Respiratory exam: Present: CTAB. Absent: respiratory distress, wheezes - Cardiovascular Cardiovascular exam: Present: RRR, +S1, +S2. Absent: diastolic murmur, gallop, rubs, systolic murmur - GI/Abdominal GI/Abdominal exam: Present: normal bowel sounds, soft, no peritoneal signs. Absent: distended, tenderness - Extremities Exam Extremities exam: Present: warm, radial pulses palpable and symetrical. Absent : calf tenderness, cyanotic, pedal edema - Neurological Exam Neurological exam: Present: alert, oriented X3 - Psychiatric Psychiatric exam: Present: normal affect, normal mood Internal Medicine: Result - Labs CBC & Chem 7: 05/26/17 04:18 03/22/17 04:18 Labs: Short CBC 03/22/17 Range/Units 04:18 WBC 9.6 (4.3-11.1) K/mcL Hgb 7.6 L (11.5-15.4) g/dL Hct 23.2 L (35.3-44.9) % Plt Count 158 (140-400) K/mcL Neutrophils # 6.0 (1.6-8.9) K/mcL BMP 03/22/17 04:18 Sodium 139 Potassium 4.0 Chloride 111 H Carbon Dioxide 23 BUN 28 H D Creatinine 0.84 Glucose 114 H Calcium 8.3 L - ABG Interpretation ABG results: PT/INR, D-dimer PT 11.1 Seconds (9.4-12.1) 03/20/17 05:36 - VTE Documentation of Mechanical Device: Intermittent pneumatic compression device Consult Discharge Plan - Plan Referrals: NO,PCP [Primary Care Provider] -
[2017-03-22] MEDS: *HR* FentaNYL (PF) 100 MCG/2 ML VIAL IVP PRN ×2 (08:45→09:03)
[2017-03-22] MEDS: *HR* Midazolam HCl 5 MG/5 ML VIAL IVP PRN ×2 (08:45→09:03)
--- NOTE | 2017-03-22 10:17 | Event Note ---
Date of Encounter: 03/22/17 Time of Encounter: 10:00 EGD showed multiple ulcers in the duodenum. Colon prep was poor. Recommendation: Twice a day PPI and Carafate tablet twice a day follow-up with GI as an outpatient. May need colonoscopy with 2 today's prep as an outpatient
[2017-03-22] MEDS: Insulin LISPRO 300 UNITS/3 ML VIAL SQ SCH ×4 (11:01→21:22)
[2017-03-23 05:01] LABS: Basophils % 0.2 %; Eosinophils # 0.1 K/mcL (0.0-0.6); Eosinophils % 1.4 %; Hematocrit 21.9 % (35.3-44.9); Hemoglobin 7.2 g/dL (11.5-15.4); Immature Granulocytes % 0.6 % (0-4); Lymphocytes # 1.8 K/mcL (0.6-4.6); Lymphocytes % 20.9 %; Mean Corpuscular HGB Conc 32.9 g/dL (31.6-35.5); Mean Corpuscular Hemoglobin 29.8 pg (28.0-33.3); Mean Corpuscular Volume 90.5 fL (83.0-100.0); Mean Platelet Volume 10.7 fL (9.4-12.4); Monocytes # 0.8 K/mcL (0.0-1.3); Monocytes % 9.4 %; Neutrophils # 5.9 K/mcL (1.6-8.9); Nucleated Red Blood Cells 0.2 /100 WBC (0); Platelet Count 150 K/mcL (140-400); Red Blood Count 2.42 M/mcL (3.82-4.97); Red Cell Distribution Width 15.2 % (11.5-14.5); Segmented Neutrophils % 67.5 %
[2017-03-23 05:18] LABS: Calcium 8.3 mg/dL (8.6-10.8); Magnesium 1.7 mg/dL (1.6-2.6); Phosphorous 3.8 mg/dL (2.3-4.7); Potassium 4.2 mEq/L (3.5-4.5)
[2017-03-23] MEDS: Pantoprazole 40 MG VIAL IVP SCH (06:20)
[2017-03-23] MEDS: Levothyroxine 25 MCG TABLET PO SCH (06:20)
[2017-03-23 08:00] LABS: Basophils % 0.1 %; Eosinophils # 0.2 K/mcL (0.0-0.6); Eosinophils % 1.6 %; Hematocrit 23.6 % (35.3-44.9); Hemoglobin 7.5 g/dL (11.5-15.4); Immature Granulocytes % 0.5 % (0-4); Lymphocytes # 2.1 K/mcL (0.6-4.6); Lymphocytes % 22.1 %; Mean Corpuscular HGB Conc 31.8 g/dL (31.6-35.5); Mean Corpuscular Hemoglobin 29.2 pg (28.0-33.3); Mean Corpuscular Volume 91.8 fL (83.0-100.0); Mean Platelet Volume 10.7 fL (9.4-12.4); Monocytes # 0.8 K/mcL (0.0-1.3); Monocytes % 8.7 %; Neutrophils # 6.2 K/mcL (1.6-8.9); Platelet Count 159 K/mcL (140-400); Red Blood Count 2.57 M/mcL (3.82-4.97); Red Cell Distribution Width 14.9 % (11.5-14.5)
[2017-03-23] MEDS: amLODIPine 5 MG TABLET PO SCH (08:51)
[2017-03-23] MEDS: Valsartan 160 MG TABLET PO SCH (08:51)
[2017-03-23] MEDS: Cyanocobalamin (B-12) 1,000 MCG TABLET PO SCH (08:51)
[2017-03-23] MEDS: Isosorbide MONOnitrate (24 HR) 60 MG TAB.ER.24H PO SCH (08:51)
[2017-03-23] MEDS: Insulin LISPRO 300 UNITS/3 ML VIAL SQ SCH ×3 (08:52→18:23)
--- NOTE | 2017-03-23 09:59 | Discharge Summary ---
Date of Encounter: 03/23/17 Time of Encounter: 09:55 - Discharge Diagnosis (1) Anemia Priority: Primary Status: Acute Qualifiers: Anemia type: unspecified type Qualified Code(s): D64.9 - Anemia, unspecified (2) CAD (coronary artery disease) Priority: Secondary Status: Chronic Qualifiers: Coronary Disease-Associated Artery/Lesion type: [place] artery [place] vs. transplanted heart: [place] heart Associated angina: without angina Qualified Code(s): I25.10 - Atherosclerotic heart disease of [place] coronary artery without angina pectoris (3) CKD (chronic kidney disease) Priority: Secondary Status: Chronic Qualifiers: Chronic kidney disease stage: stage 3 (moderate) Qualified Code(s): N18.3 - Chronic kidney disease, stage 3 (moderate) (4) DVT prophylaxis Priority: Secondary Status: Acute (5) GERD (gastroesophageal reflux disease) Priority: Secondary Status: Chronic Qualifiers: Esophagitis presence: esophagitis presence not specified Qualified Code(s) : K21.9 - Gastro-esophageal reflux disease without esophagitis (6) Hypertension Priority: Secondary Status: Chronic Qualifiers: Hypertension type: essential hypertension Qualified Code(s): I10 - Essential (primary) hypertension (7) Hypothyroidism Priority: Secondary Status: Chronic Qualifiers: Hypothyroidism type: unspecified Qualified Code(s): E03.9 - Hypothyroidism , unspecified (8) Type 2 diabetes mellitus Priority: Secondary Status: Chronic Qualifiers: Diabetes mellitus complication status: with unspecified complications Diabetes mellitus termination clerk insulin use: without nursing home use Qualified Code( s): E11.8 - Type 2 diabetes mellitus with unspecified complications - Discharge Medications Prescriptions: Cyanocobalamin (B-12) [Vitamin B12] 1,000 mcg PO DAILY #30 tablet Omeprazole 40 mg PO BID #60 tablet. Sucralfate [Carafate] 1 gm PO QIDAC #60 tablet Home Medications: Allopurinol [Zyloprim 300 MG] 300 mg PO DAILY 03/20/17 [History] Amlodipine Besylate 10 mg PO DAILY 03/20/17 [History] Antiox #11/Om3/Dha/Epa/Lut/Linh [50+ Adult Eye Health Softgel] 1 cap PO BID 03/20 [History] Carvedilol [Coreg] 25 mg PO BID 03/20/17 [History] Clopidogrel [Plavix] 75 mg PO DAILY 03/20/17 [History] Ergocalciferol (VITAMIN D2) [Vitamin D2] 50,000 unit PO QWEEK 03/20/17 [History] Fenofibrate Nanocrystallized [Triglide] 160 mg PO DAILY 03/20/17 [History] Gabapentin [Neurontin] 300 mg PO HS 03/20/17 [History] GlipiZIDE [Glipizide Xl] 5 mg PO BID 03/20/17 [History] Iron Polysaccharide Complex [Pro Fe] 180 mg PO DAILY 03/20/17 [History] Isosorbide MONOnitrate (24 HR) [Imdur] 60 mg PO DAILY 03/20/17 [History] Levothyroxine [Synthroid] 25 mcg PO DAILY 03/20/17 [History] Meloxicam 15 mg PO DAILY 03/20/17 [History] Nitroglycerin [Nitrostat] 0.4 mg SL AD PRN 03/20/17 [History] Ondansetron ODT [Zofran ODT] 4 mg SL Q8HR PRN 03/20/17 [History] Polyethylene Glycol 3350 [Purelax] 17 gm PO DAILY 03/20/17 [History] Promethazine [Phenergan] 25 mg PO Q8HR PRN 03/20/17 [History] Ranitidine HCl [Heartburn Relief] 150 mg PO BID 03/20/17 [History] Simvastatin [Zocor] 10 mg PO DAILY 03/20/17 [History] Valsartan [Diovan] 160 mg PO DAILY 03/20/17 [History] Cyanocobalamin (B-12) [Vitamin B12] 1,000 mcg PO DAILY #30 tablet 03/23/17 [Rx] Omeprazole 40 mg PO BID #60 tablet. 03/23/17 [Rx] Sucralfate [Carafate] 1 gm PO QIDAC #60 tablet 03/23/17 [Rx] Allergies/Adverse Reactions: Allergies acetaminophen [From Darvocet-N] Adverse Reaction (Verified 03/20/17 14:49) Nausea atorvastatin [From Lipitor] Adverse Reaction (Verified 03/20/17 14:49) See Comments "Tore my ribs up" propoxyphene [From Darvocet-N] Adverse Reaction (Verified 03/20/17 14:49) Nausea Date of admission: 03/20/17 08:05 Primary care physician: PCP NO Consults: 03/21/17 07:39 Consult to Physical Therapy [CONS] Routine Comment: Evaluate, develop and implement POC Reason for Consult: evaluation for disposition at discharge 03/21/17 07:40 Consult to Oncology Hematology [CONS] Routine Consulting Provider: Linda Grewal Reason for Consult: anemia Call Completed: Yes 03/21/17 09:36 Consult to Gastroenterology [CONS] Routine Consulting Provider: Gastroenterology Nella Reason for Consult: anemia-rule out GI bleed Call Completed: Yes Discharging clinician: Tracey Perales Anticipated date of discharge: 03/23/17 - Patient Status Disposition: Home, Self-Care Condition: Good Functional capacity at discharge: uses cane/walker Overall status at discharge: patient is back to baseline - Discharge Instructions Follow Up With: Shelly Mendenhall [Advanced Practice Nurse] - 04/03/17 10:30 am Additional Instructions: Please follow up with your primary care physician, community liaison officer, and make up worker within one week after your discharge from the hospital. Please obtain the prescribed lab work prior to your appointment with your primary care physician. Your home dose of omeprazole has been increased to 40mg twice a day. Sucralafate has been added to your home medications. Vitamin B12 has been added to your home medications. Please continue to hold Plavix until your follow up with your primary care physician. Please resume all your other home medications as prescribed by your primary care physician. please seek medical help immediately if you have any acute bleeding. - Diet and Activity Activity: resume usual activities as tolerated Diet: diabetic diet, low salt diet Hospital course: Ms. Alexander is a 82 year old female with PMH of CAD, CKD, hypertension, anemia, hypothyroidism who was admitted for management of symptomatic anemia. patient was noted to have hgb of 5.9 and received 3units of PRBC. She was evaluated by GI and underwent EGD and colonoscopy. EGD showed non bleeding duodenal ulcers and colonoscopy was indeterminate due to poor bowel prep. Pt had a negative stool occult despite the anemia. Hematology was also consulted and possible bone marrow biopsy is to be considered if full GI work up is negative. Pt continues to have drop in H&H however remains hemodynamically stable. she reports of feeling well and denies any acute bleeding or distress. Physical therapy evaluated the patient and home health was recommended. Patient states she lives with family and does not need any home health services and refused a social scientist eval. She is noted to have a drop in H&H this morning, however wishes to be discharged to home with further care as outpatient. Pt will be transfused two units PRBC and will be discharged to home with follow up with GI , PCP, and hematology. Pt and family demonstrate understanding of her diagnosis and agree with the care plan. - Time Spent with Patient Total time spent providing and/or coordinating discharge services: Greater than 30 minutes - Constitutional Vitals: Temp Pulse Resp BP Pulse Ox 98.4 F 79 16 132/66 95 03/23/17 06:41 03/23/17 06:41 03/23/17 06:41 03/23/17 06:41 03/23/17 06:41 General appearance: Present: A&O X 3, pleasant, no acute distress, obese - Head Head exam: Present: atraumatic, normocephalic - Eye Eye exam: Present: normal appearance, conjuntiva pink, sclera anicteric - Respiratory Respiratory exam: Present: CTAB. Absent: accessory muscle use, rales, rhonchi, wheezes - Cardiovascular Cardiovascular exam: Present: RRR, +S1, +S2. Absent: diastolic murmur, gallop, rubs, systolic murmur - GI/Abdominal GI/Abdominal exam: Present: normal bowel sounds, soft, no peritoneal signs. Absent: distended, tenderness - Extremities Exam Extremities exam: Present: warm, radial pulses palpable and symetrical. Absent : calf tenderness, cyanotic, pedal edema - Neurological Exam Neurological exam: Present: alert, oriented X3 - Psychiatric Psychiatric exam: Present: normal affect, normal mood - VTE Documentation of Mechanical Device: Intermittent pneumatic compression device
[2017-03-23] MEDS ORDERED: 0.9 % Sodium Chloride 250 ML ONE ×2 (10:26→16:53)
[2017-03-23] MEDS: Sucralfate 1 GM TABLET PO SCH ×2 (13:11→18:24)
[2017-03-23 20:16] VITALS: BP 125/71
[2017-03-25 01:27] LABS: Alpha 2 Globulin (PEP) 0.76 g/dL (0.48-1.05); Beta Globulin (PEP) 0.63 g/dL (0.48-1.10)
[2017-03-26 08:43] LABS: IFE Reflexed IFE Done; Immunoglobulin A 223 mg/dL (68-408)
[2017-03-26 08:44] LABS: Immunoglobulin G 759 mg/dL (768-1632); Immunoglobulin M 34 mg/dL (35-263)
== END 2017-03-23 20:17 | disposition home or self-care (01) | DRG 812 ==
LOC: 2ANU
PROVIDERS: ADMIT Internal Medicine; ATTEND Internal Medicine
PROC: ENDOEBX (2017-03-22 11:00)

== ENCOUNTER 2017-09-05 09:13 | Inpatient (IN) ==
[2017-09-05] MEDS ORDERED: Ondansetron 4 MG/2 ML VIAL IVP ONE (09:46)
[2017-09-05] MEDS ORDERED: 0.9 % Sodium Chloride 1,000 ML IVC ONE (09:46)
[2017-09-05] MEDS ORDERED: *HR* Morphine 2 MG/ML SYRINGE IVP ONE (09:46)
--- NOTE | 2017-09-05 09:52 | Emergency Department Note ---
Disposition Clinical Impression: Pancreatitis Qualifiers: Chronicity: acute Pancreatitis type: unspecified pancreatitis type Acute pancreatitis complication: unspecified Qualified Code(s): K85.90 - Acute pancreatitis without necrosis or infection, unspecified Disposition: Admitted As Inpatient Time of Disposition: 13:08 General Adult HPI - General Chief complaint: ED Dizziness Stated complaint: Dizziness,ABD Pain Time Seen by Provider: 09/05/17 09:26 Source: patient Limitations: no limitations Nursing Notes Reviewed: Yes Vital Signs Reviewed: Yes - History of Present Illness HPI Narrative: 82-year-old female past medical history of CAD with stent placement, anemia, hypothyroidism, presents to the emergency department with epigastric abdominal pain, weakness, and lightheadedness. Patient's daughter states that the last time patient had any weakness was when she had to get a blood transfusion back in February due to low hemoglobin levels. Patient admits to not having this abdominal pain at that time though. Patient reports having an episode of nausea associated with her epigastric pain. Patient denies any melenic school stools or any hematochezia. Patient states that oncology worked her up and they cannot find a reason for anemia. Patient did not receive a colonoscopy that was scheduled. The patient denies any current chest pain, pressure, tightness. Patient denies any fluttering of her heart. Patient denies any shortness of breath. Pain Scale: 2 - Related Data Home Medications Medication Instructions Recorded Confirmed Amlodipine Besylate 10 mg PO DAILY 03/20/17 03/20/17 Antiox #11/Om3/Dha/Epa/Lut/Linh 1 cap PO BID 03/20/17 03/20/17 [50+ Adult Eye Health Softgel] Carvedilol [Coreg] 25 mg PO BID 03/20/17 03/20/17 Clopidogrel [Plavix] 75 mg PO DAILY 03/20/17 03/20/17 Ergocalciferol (VITAMIN D2) 50,000 unit PO QWEEK 03/20/17 03/20/17 [Vitamin D2] Gabapentin [Neurontin] 300 mg PO HS 03/20/17 03/20/17 GlipiZIDE [Glipizide Xl] 5 mg PO BID 03/20/17 03/20/17 Iron Polysaccharide Complex [Pro 180 mg PO DAILY 03/20/17 03/20/17 Fe] Isosorbide MONOnitrate (24 HR) 60 mg PO DAILY 03/20/17 03/20/17 [Imdur] Levothyroxine [Synthroid] 25 mcg PO DAILY 03/20/17 03/20/17 Ranitidine HCl [Heartburn Relief] 150 mg PO BID 03/20/17 03/20/17 Simvastatin [Zocor] 10 mg PO DAILY 03/20/17 03/20/17 Valsartan [Diovan] 160 mg PO DAILY 03/20/17 03/20/17 Omeprazole [PriLOSEC] 20 mg PO DAILY 09/05/17 09/05/17 Previous Rx's Medication Instructions Recorded Cyanocobalamin (B-12) [Vitamin B12] 1,000 mcg PO DAILY #30 tablet 05/27/17 Cyclobenzaprine [Flexeril] 10 mg PO TID PRN #21 tablet 05/27/17 Pantoprazole Sodium [Protonix] 40 mg PO DAILY #30 tablet. 05/27/17 Allergies Allergy/AdvReac Type Severity Reaction Status Date / Time atorvastatin [From Lipitor] AdvReac See Verified 09/05/17 09:16 Comments propoxyphene AdvReac Nausea Verified 09/05/17 09:16 [From Darvocet-N] All systems ED: reviewed and negative except as stated. Review of Systems: As Per HPI Constitutional: Denies: fever Cardiovascular: Reports: other (Lightheadedness). Denies: chest pain, palpitations Respiratory: Denies: cough Gastrointestinal: Reports: abdominal pain, nausea. Denies: diarrhea, constipation, melena, hematochezia Genitourinary: Denies: urgency, dysuria, frequency, hematuria Musculoskeletal: Denies: back pain Past Medical History - Past Medical History Medical history: Reports: diabetes, hypertension, myocardial infarction, thyroid disease Surgical history: Reports: angioplasty/stent Psychiatric history: Reports: no psych history STRUCTURAL STEEL WORKER history: Reports: no STRUCTURAL STEEL WORKER history - Social History Smoking Status: Never smoker Smokeless Tobacco Status: No Alcohol use: Reports: none Drug use: Reports: none Physical Exam General: Pale, 82-year-old female who appears to be in no acute distress Head: autraumatic, EOMI, no conjuncitval pallor, no scleral icterus, Mouth: oral mucous membranes moist Neck: neck soft, trachea midline Chest:: Equal chest wall rise Lungs: Normal lungs sounds bilaterally, no wheezes, no respiratory distress Heart: normal heart sounds, normal rate and rhythm, Abdomen: soft, mild tenderness to palpation of the epigastrium, negative Blevins sign, no rigidity, no guarding, no rebdound tenderness Lower Extremities: no pedal edema, calves non-tender Integumentary: Skin warm, dry, and intact Neuro: Alert Psych: normal affect, normal mood - General Limitations: no limitations General appearance: alert Course Vital Signs Temperature 97.3 F L 09/05/17 09:16 Pulse Rate 46 09/05/17 09:16 Respiratory Rate 20 09/05/17 09:16 Blood Pressure 96/48 09/05/17 09:16 O2 Sat by Pulse Oximetry 96 09/05/17 09:16 Temperature 97.3 F L 09/05/17 09:16 Pulse Rate 54 09/05/17 10:24 Respiratory Rate 18 09/05/17 12:43 Blood Pressure 110/55 09/05/17 12:43 O2 Sat by Pulse Oximetry 95 09/05/17 10:24 Oxygen Delivery Oxygen Delivery Room Air Medical Decision Making - [facility] Narrative Medical decision making narrative: 82-year-old female presents to the emergency department with generalized weakness and epigastric abdominal pain. Patient has a history of anemia in the spell today on physical exam. We will obtain a CBC to rule out any need for transfusion as this patient has needed transfusions in the past. We will obtain electrocardiogram as this patient is bradycardic. We will also obtain a CMP, lipase, troponin, chest x-ray, CT scan of the abdomen and pelvis. We are providing this patient with fluids as well as analgesia and antiemetic. Patient's CT scan does not reveal any acute finding in the abdomen or pelvis. His chronic mild prominence of the intrahepatic bile ducts that are not changed since February of this year. The patient does have an elevated lipase of 8118. Patient denies any consumption of alcohol or any nonsteroidal anti- inflammatories. There is some concern for mild distention of the gallbladder, but patient has a negative Blevins sign on physical exam and is not complaining of any right upper quadrant abdominal pain. States he consider ultrasound for further evaluation. I recommend that to be performed inpatient. I have spoken to the hospitalist about admission of this patient for pancreatitis. He agrees to accept the admission. I discussed this with the patient and her daughter and they agree with the plan of admission. Patient is being given normal saline as well as analgesia and anti-emetics. Abdomen/Pelvis CT 09/05/17 09:45 IMPRESSION: 1. No acute finding in the abdomen or pelvis to account for patient's abdominal pain. 2. Chronic mild prominence of the intrahepatic bile ducts, not significantly changed since February 2017. 3. Mild distention of the gallbladder. If patient has right upper quadrant abdominal pain, consider ultrasound for further evaluation. 4. Sigmoid diverticulosis. No evidence of diverticulitis. D/ / 09/05/2017 12:09:09 Anatoliy Langley MD / Amairani Junior Interpreting Provider: Anatoliy Langley MD Chest X-Ray 09/05/17 09:45 IMPRESSION: Stable mild cardiomegaly. No acute pulmonary disease. D/ / Michele Jang MD / Michele Jang MD Interpreting Provider: Michele Jang MD Vital Signs Temperature 97.3 F L 09/05/17 09:16 Pulse Rate 46 09/05/17 09:16 Respiratory Rate 20 09/05/17 09:16 Blood Pressure 96/48 09/05/17 09:16 O2 Sat by Pulse Oximetry 96 09/05/17 09:16 Temperature 97.3 F L 09/05/17 09:16 Pulse Rate 54 09/05/17 10:24 Respiratory Rate 16 09/05/17 10:24 Blood Pressure 111/50 09/05/17 10:24 O2 Sat by Pulse Oximetry 95 09/05/17 10:24 Oxygen Delivery Oxygen Delivery Room Air - Medical Records Medical records reviewed: Yes I reviewed the patient's medical records. - Lab Data Lab results reviewed: Yes I reviewed the patient's lab results. Result diagrams: 09/05/17 09:45 09/05/17 09:45 Lab Results 09/05/17 09/05/17 09/05/17 Range/Units 09:45 09:45 09:45 WBC 10.6 (4.3-11.1) K/mcL RBC 3.83 (3.82-4.97) M/mcL Hgb 10.9 L (11.5-15.4) g/dL Hct 34.6 L (35.3-44.9) % MCV 90.3 (83.0-100.0) fL MCH 28.5 (28.0-33.3) pg MCHC 31.5 L (31.6-35.5) g/dL RDW 14.7 H (11.5-14.5) % Plt Count 150 (140-400) K/mcL MPV 12.1 (9.4-12.4) fL Immature Gran % 0.8 (0-4) % Seg Neutrophils % 78.5 % Lymphocytes % 14.5 % Monocytes % 5.2 % Eosinophils % 0.8 % Basophils % 0.2 % Neutrophils # 8.3 (1.6-8.9) K/mcL Lymphocytes # 1.5 (0.6-4.6) K/mcL Monocytes # 0.6 (0.0-1.3) K/mcL Eosinophils # 0.1 (0.0-0.6) K/mcL Basophils # 0.0 (0.0-0.2) K/mcL Immature Plt Fraction 9.3 H (1.1-6.1) % Sodium 138 (136-145) mEq/L Potassium 5.1 H (3.5-4.5) mEq/L Chloride 107 (98-109) mEq/L Carbon Dioxide 22 (19-29) mEq/L BUN 25 H (7-20) mg/dL Creatinine 1.35 H (0.57-1.11) mg/dL Est GFR ( Amer) 46 L (> 60) Est GFR (Non-Af Amer) 38 L (> 60) BUN/Creatinine Ratio 19 (6-26) Glucose 212 H (70-99) mg/dL Calculated Osmolality 297 (280-300) Calcium 8.8 (8.6-10.8) mg/dL Total Bilirubin 0.7 (0.2-1.2) mg/dL AST 46 H (5-34) Units/L ALT 24 (0-55) Units/L Alkaline Phosphatase 84 (38-126) Units/L Troponin I 0.01 (0-0.03) ng/mL Serum Total Protein 6.6 (6.0-8.3) g/dL Albumin 2.9 L (3.5-5.0) g/dL Globulin 3.7 H (2.4-3.5) g/dL Albumin/Globulin Ratio 0.8 L (1.1-2.2) Lipase 8118 H (8-78) Units/L TSH 4.222 (0.350-4.840) mcIU/mL Urine Color (Yellow) Urine Clarity (Clear) Urine pH (5.0-8.0) pH Units Ur Specific [place] (1.010-1.025) Urine Protein (Neg-Trace) mg/dL Urine Glucose (UA) (Normal) mg/dL Urine Ketones (Negative) mg/dL Urine Blood (Negative) Urine Nitrite (Negative) Urine Bilirubin (Negative) Urine Urobilinogen (Normal) mg/dL Ur Leukocyte Esterase (Negative) Urine Microscopic RBC (0-3) per hpf Urine Microscopic WBC (0-3) per hpf Ur Squamous Epith Cells (None-Few) per lpf Urine Bacteria (None-Few) per hpf Hyaline Casts (None-Few) per lpf Ur Culture Indicated? (NO) Blood Type Antibody Screen 09/05/17 09/05/17 Range/Units 09:45 11:50 WBC (4.3-11.1) K/mcL RBC (3.82-4.97) M/mcL Hgb (11.5-15.4) g/dL Hct (35.3-44.9) % MCV (83.0-100.0) fL MCH (28.0-33.3) pg MCHC (31.6-35.5) g/dL RDW (11.5-14.5) % Plt Count (140-400) K/mcL MPV (9.4-12.4) fL Immature Gran % (0-4) % Seg Neutrophils % % Lymphocytes % % Monocytes % % Eosinophils % % Basophils % % Neutrophils # (1.6-8.9) K/mcL Lymphocytes # (0.6-4.6) K/mcL Monocytes # (0.0-1.3) K/mcL Eosinophils # (0.0-0.6) K/mcL Basophils # (0.0-0.2) K/mcL Immature Plt Fraction (1.1-6.1) % Sodium (136-145) mEq/L Potassium (3.5-4.5) mEq/L Chloride (98-109) mEq/L Carbon Dioxide (19-29) mEq/L BUN (7-20) mg/dL Creatinine (0.57-1.11) mg/dL Est GFR ( Amer) (> 60) Est GFR (Non-Af Amer) (> 60) BUN/Creatinine Ratio (6-26) Glucose (70-99) mg/dL Calculated Osmolality (280-300) Calcium (8.6-10.8) mg/dL Total Bilirubin (0.2-1.2) mg/dL AST (5-34) Units/L ALT (0-55) Units/L Alkaline Phosphatase (38-126) Units/L Troponin I (0-0.03) ng/mL Serum Total Protein (6.0-8.3) g/dL Albumin (3.5-5.0) g/dL Globulin (2.4-3.5) g/dL Albumin/Globulin Ratio (1.1-2.2) Lipase (8-78) Units/L TSH (0.350-4.840) mcIU/mL Urine Color Yellow (Yellow) Urine Clarity Cloudy A (Clear) Urine pH 5.5 (5.0-8.0) pH Units Ur Specific [place] 1.018 (1.010-1.025) Urine Protein Negative (Neg-Trace) mg/dL Urine Glucose (UA) Normal (Normal) mg/dL Urine Ketones Negative (Negative) mg/dL Urine Blood Negative (Negative) Urine Nitrite Positive A (Negative) Urine Bilirubin Negative (Negative) Urine Urobilinogen Normal (Normal) mg/dL Ur Leukocyte Esterase Negative (Negative) Urine Microscopic RBC 0-3 (0-3) per hpf Urine Microscopic WBC 0-3 (0-3) per hpf Ur Squamous Epith Cells Many H (None-Few) per lpf Urine Bacteria Many H (None-Few) per hpf Hyaline Casts None Seen (None-Few) per lpf Ur Culture Indicated? YES A (NO) Blood Type O NEGATIVE Antibody Screen NEGATIVE - Radiology Data Radiology results reviewed: Yes I reviewed the patient's radiology results. - EKG Data EKG #1 EKG attestation: Yes I reviewed and interpreted this EKG. EKG results narrative: 9:52 Ventricular rate 46 bpm, TN interval 250 ms, QRS duration 90 ms, QTC 532 ms. Sinus bradycardia with first-degree AV block and left axis deviation. There are no ischemic changes noted on this electrocardiogram. First-degree AV block is new. This is a comparison to an electrocardiogram performed on March 20, 2017.
[2017-09-05 10:02] LABS: Basophils % 0.2 %; Eosinophils # 0.1 K/mcL (0.0-0.6); Eosinophils % 0.8 %; Hematocrit 34.6 % (35.3-44.9); Hemoglobin 10.9 g/dL (11.5-15.4); Immature Granulocytes % 0.8 % (0-4); Immature Platelets 9.3 % (1.1-6.1); Lymphocytes # 1.5 K/mcL (0.6-4.6); Lymphocytes % 14.5 %; Mean Corpuscular HGB Conc 31.5 g/dL (31.6-35.5); Mean Corpuscular Hemoglobin 28.5 pg (28.0-33.3); Mean Corpuscular Volume 90.3 fL (83.0-100.0); Mean Platelet Volume 12.1 fL (9.4-12.4); Monocytes # 0.6 K/mcL (0.0-1.3); Monocytes % 5.2 %; Neutrophils # 8.3 K/mcL (1.6-8.9); Platelet Count 150 K/mcL (140-400); Red Blood Count 3.83 M/mcL (3.82-4.97); Red Cell Distribution Width 14.7 % (11.5-14.5); Segmented Neutrophils % 78.5 %
[2017-09-05 10:18] LABS: Albumin 2.9 g/dL (3.5-5.0); Albumin/Globulin Ratio 0.8 (1.1-2.2); Bilirubin,Total 0.7 mg/dL (0.2-1.2); Calcium 8.8 mg/dL (8.6-10.8); Globulin 3.7 g/dL (2.4-3.5); Potassium 5.1 mEq/L (3.5-4.5); Total Protein 6.6 g/dL (6.0-8.3)
[2017-09-05 10:38] LABS: Thyroid Stimulating Hormone 4.222 mcIU/mL (0.350-4.840)
--- NOTE | 2017-09-05 11:00 | Emergency Department Note ---
START Narrative - START START: I examined this patient and my medical decision-making was reviewed with the GUITAR REPAIR TECHNICIAN/PA/Advanced Practice Nurse/Resident Physician. I agree with the documented findings, disposition and treatment plan as described except to the extent set forth below. ED attending: Patient's emergency medicine resident Dr. Talat Willard. Please see copy of this note for H&P evaluation and management and ED disposition. We both had independent [id number] time in contact with this patient. Briefly: 82-year-old female brought in for weakness and abdominal pain. Prior history currently being worked up of anemia of unclear ideology requiring transfusion this past February when her hemoglobin dropped to 5. Patient denies chest pain or vomiting shortness of breath fever chills or new medicines. Patient is hypotensive with a systolic in the mid 90s. She is getting IV fluids abdominal pelvic CT screening labs. Providing 40 minutes critical care service for this patient. Disposition pending with admission anticipated
[2017-09-05 12:00] LABS: Bilirubin,Urine Negative (Negative); Blood,Urine Negative (Negative); Clarity,Urine Cloudy (Clear); Color,Urine Yellow (Yellow); Glucose,Urine (UA) Normal (Normal); Ketones,Urine Negative (Negative); Leukocyte Esterase,Urine Negative (Negative); Nitrite,Urine Positive (Negative); PH,Urine 5.5 pH Units (5.0-8.0); Protein,Urine Negative (Neg-Trace); Specific Gravity,Urine 1.018 (1.010-1.025); Urobilinogen,Urine Normal (Normal)
[2017-09-05 12:01] LABS: Bacteria,Urine Many per hpf (None-Few); Hyaline Casts,Urine None Seen per lpf (None-Few); RBC,Urine 0-3 per hpf (0-3); Squamous Epithelial Cell,Urine Many per lpf (None-Few); WBC,Urine 0-3 per hpf (0-3)
[2017-09-05] MEDS ORDERED: Naloxone 0.4 MG/ML INJ IVP PRN (14:03)
[2017-09-05] MEDS ORDERED: *HR* HYDROcodone/Acet 5/325 mg TABLET PO PRN (14:03)
[2017-09-05] MEDS ORDERED: Ondansetron 4 MG/2 ML VIAL IVP PRN (14:03)
[2017-09-05] MEDS ORDERED: Cyanocobalamin (B-12) 1,000 MCG/ML VIAL IM ONE (14:09)
[2017-09-05] MEDS ORDERED: Dextrose Gel 15 GM PO PRN ×2 (14:20)
[2017-09-05] MEDS ORDERED: D5% in Water 1,000 ML IVC PRN (14:20)
[2017-09-05] MEDS ORDERED: *HR* Dextrose 50 % in Water (Syg) 50 ML SYRINGE IVP PRN (14:20)
--- NOTE | 2017-09-05 14:30 | Internal Med History&Physical ---
<Sammy Coe - Last Filed: 09/05/17 15:35> Date of Encounter: 09/05/17 Time of Encounter: 13:00 Assessment and Plan (1) Pancreatitis Current visit: Yes Status: Acute Pt. reports abdominal pain in her right upper and lower quadrant that began this morning. Pt. reports she felt nauseous after eating two pieces of toast but denies vomiting. Pt. denies previous incidence or sx like these. CT of the abdomen and pelvis without contrast today shows no acute finding abdomen or pelvis to account for patient's abdominal pain, chronic mild prominence of the intrahepatic bile ducts not significantly changed since February 2017, mild distention of the gallbladder, sigmoid diverticulosis with no evidence of diverticulitis. US ordered of the abdomen/pelvis. Lipase 8118. Amylase ordered stat. NPO except for necessary medications. IV Ringer's lactate 100 mL/HR. Stair -step pain medications for pain management with Tylenol d/t current CKD and GFR of 38. GI consult ordered. Pt is at moderate risk for further morbidity d/t curent sx, hx, and risk factors. Inpatient. Qualifiers: Chronicity: acute Pancreatitis type: unspecified pancreatitis type Acute pancreatitis complication: unspecified Qualified Code(s): K85.90 - Acute pancreatitis without necrosis or infection, unspecified (2) UTI (urinary tract infection) Current visit: Yes Status: Acute Initial U/A indicative for culture and UTI. Pt. reports dizziness over the past 24 hours w/abdominal pain. IVPB ceftriaxone 1,000 daily for infection coverage. Monitor pt and f/u labs for signs of increasing infection. Monitor I&O. Qualifiers: Urinary tract infection type: site unspecified Hematuria presence: without hematuria Qualified Code(s): N39.0 - Urinary tract infection, site not specified (3) Dizziness Current visit: Yes Status: Acute Acute dizziness w/current sx. Falls/safety precautions. (4) Diabetes Current visit: Yes Status: Chronic Hx of chronic diabetes controlled with oral antihyperglycemic medications. BG 212 on admission. Patient states she does not like shots but will take insulin sliding scale if necessary. Hold patient's oral medication and administer low- dose correction insulin sliding scale with hypoglycemic protocol. A1c in a.m. labs. BG checks ACHS. Qualifiers: Diabetes mellitus type: type 2 Diabetes mellitus complication status: with unspecified complications Diabetes mellitus long term care phlebotomist insulin use: without long term care phlebotomist use Qualified Code(s): E11.8 - Type 2 diabetes mellitus with unspecified complications (5) HTN (hypertension) Current visit: Yes Status: Chronic Hx of chronic HTN. Monitor pt. and VS. continue amlodipine, Coreg, and Imdur. Qualifiers: Hypertension type: essential hypertension Qualified Code(s): I10 - Essential (primary) hypertension (6) Anemia Current visit: Yes Status: Chronic Hx of chronic anemia. Pts. Hgb is 10.9 and Hct 34.6 today which slightly above patient's baseline. Fecal Hemoccult ordered. B12 1000 mcg ordered once. Folic acid daily. Iron panel ordered. Patient previously typed and screened if transfusions are necessary. H/H to be monitored in f/u labs. Qualifiers: Anemia type: unspecified type Qualified Code(s): D64.9 - Anemia, unspecified (7) CAD (coronary artery disease) Current visit: Yes Status: Chronic Hx of chronic CAD and previous NV many years ago w/placement of stents x2. We will continue patient's amlodipine, Coreg, Imdur, tonsillar, Zocor, Plavix, and aspirin therapy. Continuous cardiac telemetry. Qualifiers: Coronary Disease-Associated Artery/Lesion type: saxman artery [place] vs. transplanted heart: saxman heart Associated angina: without angina Qualified Code(s): I25.10 - Atherosclerotic heart disease of saxman coronary artery without angina pectoris (8) CKD (chronic kidney disease) Current visit: Yes Status: Chronic Hx of CKD. Creatinine 1.35 and GFR 38 today. Will use IV fluids judiciously and avoid nephrotoxic agents. Monitor I&O. Qualifiers: Chronic kidney disease stage: stage 3 (moderate) Qualified Code(s): N18.3 - Chronic kidney disease, stage 3 (moderate) (9) GERD (gastroesophageal reflux disease) Current visit: Yes Status: Chronic Hx of chronic GERD. IVP Zofran Q8 PRN for nausea. IVP Protonix 40 mg IVP daily. Qualifiers: Esophagitis presence: esophagitis presence not specified Qualified Code(s) : K21.9 - Gastro-esophageal reflux disease without esophagitis (10) Thyroid disease Current visit: Yes Status: Chronic Hx of chronic thyroid disease. Continue patient's Synthroid. (11) DVT prophylaxis Current visit: Yes Status: Acute Bilateral SCDs on LEs for DVT prophylaxis. Pharmacologic DVT prophylaxis contraindicated due to patient's drop in hemoglobin and hematocrit. Monitor patient for signs of bleeding. Internal Medicine - H&P: HPI Chief complaint: Abdominal pain Admitted From: Emergency Dept Plans for Post Hospital Care: Home History of present illness: Ms. Alexander is a 82 year old female with medical hx of diabetes controlled with oral anti-hyperglycemics, hypertension, previous myocardial infarction many years ago with stent placement 2, and thyroid disease presents from the ED with chief complaint of abdominal pain, weakness, and dizziness that began this morning. Pt. reports she felt nauseous after eating two pieces of toast but denies vomiting. Pt. denies previous incidence or sx like these. Pt. also reports she is chronically anemic. Pt. denies recent illness, fever, chills, vomiting, headache, cough, congestion, diarrhea, constipation, changes in vision , unusual bleeding, lightheadedness, pre-syncope, or syncope. Past Med Surg Social Fam HX - Past Medical History Source: patient, old records reviewed, obtained from family Medical history: arthritis, diabetes, hypertension, myocardial infarction, thyroid disease Psychiatric history: no psych history - Past Surgical History Surgical History: angioplasty/stent (x2), cataract - Social History Smoking Status: Never smoker Smokeless Tobacco Status: No Alcohol use: none Drug use: none Current living situation: Home, With Family Activity Level: Independent ambulation Recent Out of Country Travel Within the Last 8 Weeks: No Exposure or Possible Exposure to Illness During Travel: No - Family History Mother Race: Family Member Ethnicity: Non- Living Status: Age at : 72 Cause of : NV Hx Family Cardiac Disorders: Yes ([place], Stroke) Hx Family Endocrine Disorder: Yes (DM) Father Race: Family Member Ethnicity: Non- Living Status: (80) Age at : 80 Cause of : Metastatic cancer Hx Family Cancer: Yes (Pancreatic, liver, brain) Brother Race: Family Member Ethnicity: Non- Living Status: Age at : 79 Cause of : NV Hx Family Cardiac Disorders: Yes (NV) Sister Race: Family Member Ethnicity: Non- Living Status: Age at : 79 Cause of : CAD Hx Family Cardiac Disorders: Yes (CAD) Hx Family Endocrine Disorder: Yes (DM) Internal Medicine - H&P: Meds Amlodipine Besylate 10 mg PO DAILY 03/20/17 [History] Antiox #11/Om3/Dha/Epa/Lut/Linh [50+ Adult Eye Health Softgel] 1 cap PO BID 03/20 [History] Carvedilol [Coreg] 25 mg PO BID 03/20/17 [History] Clopidogrel [Plavix] 75 mg PO DAILY 03/20/17 [History] Ergocalciferol (VITAMIN D2) [Vitamin D2] 50,000 unit PO QWEEK 03/20/17 [History] Gabapentin [Neurontin] 300 mg PO HS 03/20/17 [History] GlipiZIDE [Glipizide Xl] 5 mg PO BID 03/20/17 [History] Iron Polysaccharide Complex [Pro Fe] 180 mg PO DAILY 03/20/17 [History] Isosorbide MONOnitrate (24 HR) [Imdur] 60 mg PO DAILY 03/20/17 [History] Levothyroxine [Synthroid] 25 mcg PO DAILY 03/20/17 [History] Ranitidine HCl [Heartburn Relief] 150 mg PO BID 03/20/17 [History] Simvastatin [Zocor] 10 mg PO DAILY 03/20/17 [History] Valsartan [Diovan] 160 mg PO DAILY 03/20/17 [History] Cyanocobalamin (B-12) [Vitamin B12] 1,000 mcg PO DAILY #30 tablet 05/27/17 [Rx] Cyclobenzaprine [Flexeril] 10 mg PO TID PRN #21 tablet 05/27/17 [Rx] Pantoprazole Sodium [Protonix] 40 mg PO DAILY #30 tablet. 05/27/17 [Rx] Omeprazole [PriLOSEC] 20 mg PO DAILY 09/05/17 [History] 3 Allergy/AdvReac Type Severity Reaction Status Date / Time atorvastatin [From Lipitor] AdvReac See Verified 09/05/17 09:16 Comments propoxyphene AdvReac Nausea Verified 09/05/17 09:16 [From Darvocet-N] All Systems PM: A 10-system review of systems was performed and is negative for pertinent findings except as documented above in the HPI. - Constitutional Constitutional: as per HPI, weakness, no chills, no fever(s), no night sweats - EENT Eyes: no change in vision, no discharge, no pain, no photophobia Ears: no ear discharge, no ear pain, no tinnitus Nose, mouth and throat: no dysphagia, no nasal discharge, no neck pain, no sore throat - Breasts Breasts: as per HPI - Cardiovascular Cardiovascular ROS IM: as per HPI - Respiratory Respiratory: no cough, no dyspnea, no wheezing, no excessive phlegm production - Gastrointestinal Gastrointestinal: as per HPI, abdominal pain, nausea - Genitourinary Genitourinary: no change in urinary stream, no dysuria, no flank pain, no hematuria Menstruation: as per HPI - Musculoskeletal Musculoskeletal ROS IM: no numbness, no tingling - Integumentary Integumentary IM: no rash, no unusual bruising - Neurological Neurological ROS: as per HPI, dizziness, weakness, no confusion, no convulsions , no focal weakness, no numbness, no tingling, no tremor(s) - Psychiatric Psychiatric: as per HPI - Endocrine Endocrine IM: as per HPI - Hematologic/Lymphatic Hematologic/Lymphatic: no easy bruising - Allergic/Immunologic Allergic/Immunologic: as per HPI - Constitutional Vitals: Temp Pulse Resp BP Pulse Ox 97.3 F L 54 18 110/55 95 09/05/17 09:16 09/05/17 10:24 09/05/17 12:43 09/05/17 12:43 09/05/17 10:24 General appearance: Present: cooperative, mild distress, A&O X 3, pleasant, obese, answers questions appropriately - Head Head exam: Present: atraumatic, normal inspection, normocephalic - Eye Eye exam: Present: PERRL, conjuntiva pink, sclera anicteric Pupils: Present: PERRL - ENT ENT exam: Present: normal exam, normal external ear exam - Neck Neck exam general surgery: Present: normal inspection, supple, trachea midline. Absent: lymphadenopathy - Respiratory Respiratory exam: Present: CTAB. Absent: accessory muscle use, rales, rhonchi, wheezes - Cardiovascular Cardiovascular exam: Present: bradycardia, +S1, +S2. Absent: diastolic murmur, gallop, rubs, systolic murmur - GI/Abdominal GI/Abdominal exam: Present: guarding, normal bowel sounds, soft, tenderness, no peritoneal signs. Absent: distended - Rectal Rectal exam: Present: deferred - Additional comments: exam deferred. - Extremities Exam Extremities exam: Present: warm, radial pulses palpable and symmetrical. Absent : calf tenderness, cyanotic, pedal edema - Back Exam Back exam: Present: normal inspection - Neurological Exam Neurological exam: Present: CN II-XII intact, oriented X3, no focal deficits. Absent: pronater drift, facial droop, speech deficit - Psychiatric Psychiatric exam: Present: normal affect, normal mood - Skin Skin exam: Present: dry, intact Internal Med - H&P Results - Labs CBC & Chem 7: 09/05/17 09:45 09/05/17 09:45 - EKG Data EKG shows normal: sinus rhythm Rate: bradycardia - EKG Data Prior EKG available for review: yes EKG comments: 09/05/17 14:38 EKG dated 03/20/17 shows sinus rhythm with sinus arrhythmia and marked left axis deviation. EKG dated 09/05/17 shows sinus bradycardia with first-degree AV block, marked left axis deviation, and prolonged QT interval. - Diagnostic Studies Chest x-ray Additional comments: Impressions Chest X-Ray 09/05/17 09:45 IMPRESSION: Stable mild cardiomegaly. No acute pulmonary disease. D/ / Michele Jang MD / Michele Jang MD Interpreting Provider: Michele Jang MD CT scan - abdomen Additional comments: Impressions Abdomen/Pelvis CT 09/05/17 09:45 IMPRESSION: 1. No acute finding in the abdomen or pelvis to account for patient's abdominal pain. 2. Chronic mild prominence of the intrahepatic bile ducts, not significantly changed since February 2017. 3. Mild distention of the gallbladder. If patient has right upper quadrant abdominal pain, consider ultrasound for further evaluation. 4. Sigmoid diverticulosis. No evidence of diverticulitis. D/ / 09/05/2017 12:09:09 Anatoliy Langley MD / Amairani Junior Interpreting Provider: Anatoliy Langley MD <Johan Schneider P - Last Filed: 09/05/17 18:49> Date of Encounter: 09/05/17 Internal Medicine - H&P: HPI History of present illness: Ms. Alexander is a 82 year old female All Systems PM: A 10-system review of systems was performed and is negative for pertinent findings except as documented above in the HPI. - Constitutional Vitals: Temp Pulse Resp BP Pulse Ox 97.3 F L 54 18 110/55 95 09/05/17 09:16 09/05/17 10:24 09/05/17 12:43 09/05/17 12:43 09/05/17 10:24 Internal Med - H&P Results - Labs CBC & Chem 7: 09/05/17 09:45 09/05/17 09:45 - Impressions ITS Impressions Abdomen Ultrasound 09/05/17 18:00 IMPRESSION: 1. Mild dilation of the common bile duct, measuring 1.1 cm in diameter. No identifiable cause. 2. Mild distention of the gallbladder. No identifiable stone or evidence of sonographic Blevins sign. If clinical concern persists for acalculous cholecystitis, consider HIDA scan. D/ / 09/05/2017 18:40:42 Anatoliy Langley MD / alley Interpreting Provider: Anatoliy Langley MD - Attending Attestation I examined this patient and my medical decision-making was reviewed with the Resident Physician /FOOD CART ATTENDANT. I agree with the documented findings, disposition and treatment plan as described except to the extent set forth below. agree with above
[2017-09-05] MEDS: Ringers Solution, Lactated 1,000 ML IVC SCH (14:32)
[2017-09-05] MEDS: Pantoprazole 40 MG VIAL IVP SCH (14:34)
[2017-09-05] MEDS: cefTRIAXone 1,000 MG in Water for inj. (sterile) 10 ML IVP SCH (16:15)
[2017-09-05] MEDS: Insulin LISPRO 300 UNITS/3 ML VIAL SQ SCH (16:36)
--- NOTE | 2017-09-05 18:30 | Electrocardiograph Report ---
[place] [id number] Test Date: 2017-09-05 Pat Name: Evelyne Alexander Department: 102 Room: 3A12 Gender: F Family Consumer Scientist: Christal : 1935 Requested By: Talat Rios Order Number: [id number] Reading MD: Bella Burns Measurements Intervals [place] Rate: 46 P: 25 MO: 215 QRS: -43 QRSD: 98 T: 13 QT: 532 QTc: 492 Interpretive Statements SINUS BRADYCARDIA WITH FIRST DEGREE AV BLOCK MARKED LEFT AXIS DEVIATION [QRS AXIS < -30] PROLONGED QT INTERVAL Electronically Signed On 09-05-2017 18:28:13 EST by Bella Burns
[2017-09-05] MEDS: Acetaminophen 325 MG TABLET PO PRN (20:26)
[2017-09-05] MEDS: Gabapentin 300 MG CAPSULE PO SCH (20:26)
[2017-09-05] MEDS ORDERED: Insulin LISPRO 300 UNITS/3 ML VIAL SQ SCH (21:00)
[2017-09-06] MEDS: Ringers Solution, Lactated 1,000 ML IVC SCH ×3 (01:33→23:31)
[2017-09-06] MEDS: Levothyroxine 25 MCG TABLET PO SCH (05:44)
[2017-09-06 05:59] LABS: Basophils % 0.1 %; Eosinophils % 0.2 %; Hematocrit 30.5 % (35.3-44.9); Hemoglobin 9.9 g/dL (11.5-15.4); Immature Granulocytes % 0.9 % (0-4); Lymphocytes # 0.6 K/mcL (0.6-4.6); Lymphocytes % 4.2 %; Mean Corpuscular HGB Conc 32.5 g/dL (31.6-35.5); Mean Corpuscular Volume 89.4 fL (83.0-100.0); Mean Platelet Volume 12.3 fL (9.4-12.4); Monocytes # 0.2 K/mcL (0.0-1.3); Monocytes % 1.5 %; Neutrophils # 12.4 K/mcL (1.6-8.9); Platelet Count 122 K/mcL (140-400); Red Blood Count 3.41 M/mcL (3.82-4.97); Red Cell Distribution Width 14.6 % (11.5-14.5); Segmented Neutrophils % 93.1 %
[2017-09-06 06:03] LABS: INR 1.1; Prothrombin Time 11.8 Seconds (9.4-12.1)
[2017-09-06 06:05] LABS: Hemoglobin A1C 5.2 %
[2017-09-06 06:06] LABS: Activated Partial Thrombo Time 26.5 Seconds (26.0-36.0)
[2017-09-06 06:21] LABS: Albumin 2.5 g/dL (3.5-5.0); Albumin/Globulin Ratio 0.7 (1.1-2.2); Calcium 8.4 mg/dL (8.6-10.8); Chol/HDL Ratio 3.8 (0-4.9); Globulin 3.4 g/dL (2.4-3.5); Magnesium 1.5 mg/dL (1.6-2.6); Potassium 4.4 mEq/L (3.5-4.5); Total Protein 5.9 g/dL (6.0-8.3)
[2017-09-06] MEDS: Insulin LISPRO 300 UNITS/3 ML VIAL SQ SCH ×3 (08:04→17:20)
[2017-09-06] MEDS: amLODIPine 5 MG TABLET PO SCH (08:10)
[2017-09-06] MEDS: Folic Acid 1 MG TABLET PO SCH (08:10)
[2017-09-06] MEDS: Isosorbide MONOnitrate (24 HR) 60 MG TAB.ER.24H PO SCH (08:10)
[2017-09-06] MEDS: Valsartan 160 MG TABLET PO SCH (08:10)
[2017-09-06] MEDS: Pantoprazole 40 MG VIAL IVP SCH (08:11)
[2017-09-06] MEDS: Acetaminophen 325 MG TABLET PO PRN (08:13)
--- NOTE | 2017-09-06 10:36 | Gastroenterology Consult Note ---
Date of Encounter: 09/06/17 Time of Encounter: 10:00 - Assessment and plan (1) Abnormal LFTs Current Visit: Yes Status: Acute Assessment and plan: Pt has increased AST and ALT, GB ultrasound showed mildly dilated CBD 1.1. Likely related to gallstones will order MRCP. She may need ERCP She is continued on IVF, pain medications and is NPO. (2) Pancreatitis Current Visit: Yes Status: Acute Assessment and plan: Likely gallstone pancreatitis, continue IV fluids and pain control. Pt is NPO. Qualifiers: Chronicity: acute Pancreatitis type: unspecified pancreatitis type Acute pancreatitis complication: unspecified Qualified Code(s): K85.90 - Acute pancreatitis without necrosis or infection, unspecified (3) Anemia Current Visit: Yes Status: Chronic Assessment and plan: Chronic anemia followed by oncology in the past, pt denies any active bleeding, dark or tarry stools. She needs colonoscopy as outpatient had poor prep 03/13. Qualifiers: Anemia type: unspecified type Qualified Code(s): D64.9 - Anemia, unspecified - Time Spent With Patient Total time spent is greater than 50% in coordination of care (as documented) at patient's floor/unit and/or counseling patient: GI History of Present Illness - Data of Consult Patient: known to practice within the last 3 years Consult date: 09/06/17 Requesting Physician: Geo Mirza MD - Consult Narrative Reason for consult: abdominal pain History of present illness: Ms. Alexander is a 82 year old female with medical hx of diabetes controlled with oral anti-hyperglycemics, hypertension, previous myocardial infarction many years ago with stent placement 2, and thyroid disease. She presents with complaints of abdominal pain, weakness, and dizziness. She states she has had RUQ pain off and on for the past couple weeks. Yesterday morning she felt nauseous after eating two pieces of toast but denies vomiting. She denies GE reflux symptoms or dysphagia. She states pain seems to be worse after eating. She has a history of anemia and was admitted 05/13 and transfused with PRBCs, no obvious bleeding. She was seen by hematology and treated for B12 deficiency. Pt. denies previous incidence or sx like these. Pt. denies recent illness, fever , chills, vomiting, headache, cough, congestion, diarrhea, constipation, changes in vision, unusual bleeding, lightheadedness, pre-syncope, or syncope. CT of the abdomen and pelvis without contrast showed no acute finding abdomen or pelvis to account for patient's abdominal pain, chronic mild prominence of the intrahepatic bile ducts not significantly changed since February 2017, mild distention of the gallbladder, sigmoid diverticulosis with no evidence of diverticulitis. GB ultrasound showed Mild dilation of the common bile duct, measuring 1.1 cm in diameter. No identifiable cause.Mild distention of the gallbladder. No identifiable stone or evidence of sonographic Blevins sign. Hemoglobin is 9.9, platelet count 122, INR 1.1, BUN of 19, creatinine 1.08 , total bili 2.0, AST 492, ALT 328, albumin 2.5, amylase 1865, lipase 8118. Had plavix this morning. Colonoscopy: 03/13 Dr Asiya griggs prep was advised repeat colonoscopy with 2 day prep 2013 one tubular adenoma, diverticulosis EGD: 02/2017 Dr Asiya matias. NSAIDS/ASA: denies Anticoagulants: plavix Past Med Surg Social Fam HX - Past Medical History Medical history: arthritis, diabetes, hypertension, myocardial infarction, thyroid disease Psychiatric history: no psych history - Past Surgical History Surgical History: angioplasty/stent (x2), cataract - Social History Smoking Status: Never smoker Smokeless Tobacco Status: No Alcohol use: none Drug use: none - Family History Mother Race: Family Member Ethnicity: Non- Living Status: Age at : 72 Cause of : CA Hx Family Cardiac Disorders: Yes ([place], Stroke) Hx Family Respiratory Disorders: No Hx Family Cancer: Yes Hx Family GI Disorders: No Hx Family Endocrine Disorder: Yes (DM) Hx Family Neuromuscular Disorders: No Hx Family Neurologic Disorders: No Hx Family HEENT Disorders: No Hx Family Autoimmune Disorders: No Father Race: Family Member Ethnicity: Non- Living Status: (80) Age at : 80 Cause of : Metastatic cancer Hx Family Cancer: Yes (Pancreatic, liver, brain) Brother Race: Family Member Ethnicity: Non- Living Status: Age at : 79 Cause of : CA Hx Family Cardiac Disorders: Yes (CA) Sister Race: Family Member Ethnicity: Non- Living Status: Age at : 79 Cause of : CAD Hx Family Cardiac Disorders: Yes (CAD) Hx Family Endocrine Disorder: Yes (DM) Review of Systems: GI: as per [place] [place] [facility]: low grade fever and night sweats EYES: denies yellow discoloration ENT: denies pain with swallowing or difficulty swallowing CARDIO: denies chest pain, palpitations RESP: No Shortness of breath with exertion : denies change in color of urine NEURO: denies any weakness HEME: Denies any bruising MS: chronic joint and back pain. DERM: denies rash or itching PSYCH: Denies history of anxiety or depression - Constitutional Vitals: Temp Pulse Resp BP Pulse Ox 99.3 F 79 19 117/50 94 09/06/17 07:04 09/06/17 07:04 09/06/17 07:04 09/06/17 07:04 09/06/17 08:27 Exam: CONSTITUTIONAL:~alert, no acute distress.~HEAD:~normocephalic.~EYES:~no jaundice.~NECK:~no obvious swelling.~HEART:~regular rate and rhythm, no murmurs. ~LUNGS:~bilateral good air entry.~ABDOMEN:~non distended, soft, tender RUQ, ~ RECTAL EXAM:~Deferred.~EXTREMITIES:~no clubbing, cyanosis or edema.~SKIN:~no stigmata of chronic liver disease, pallor noted.~NEUROLOGIC:~no obvious focal defect.~~~~ Results - Labs CBC & Chem 7: 09/06/17 05:26 09/06/17 05:26 Labs: Last Result Calcium 8.4 mg/dL (8.6-10.8) L 09/06/17 05:26 Iron 65 mcg/dL (50-170) 09/05/17 09:45 % Saturation 26 % (15-50) 09/05/17 09:45 Transferrin 181 mg/dL (180-382) 09/05/17 09:45 Troponin I 0.01 ng/mL (0-0.03) 09/05/17 09:45 Triglycerides 162 mg/dL (< 150) H 09/06/17 05:26 Entire Visit Hgb 9.9 g/dL (11.5-15.4) L 09/06/17 05:26 Hct 30.5 % (35.3-44.9) L 09/06/17 05:26 PT 11.8 Seconds (9.4-12.1) 09/06/17 05:26 Total Bilirubin 2.0 mg/dL (0.2-1.2) H D 09/06/17 05:26 AST 482 Units/L (5-34) H 09/06/17 05:26 ALT 328 Units/L (0-55) H 09/06/17 05:26 Amylase 1865 Units/L (25-125) H 09/05/17 09:45 Lipase 8118 Units/L (8-78) H 09/05/17 09:45 - ABG ABG results: PT/INR, D-dimer PT 11.8 Seconds (9.4-12.1) 09/06/17 05:26 - Impressions Impressions Abdomen Ultrasound 09/05/17 18:00 IMPRESSION: 1. Mild dilation of the common bile duct, measuring 1.1 cm in diameter. No identifiable cause. 2. Mild distention of the gallbladder. No identifiable stone or evidence of sonographic Blevins sign. If clinical concern persists for acalculous cholecystitis, consider HIDA scan. D/ / 09/05/2017 18:40:42 Anatoliy Langley MD / alley Interpreting Provider: Anatoliy Langley MD Consult Discharge Plan - Plan Referrals: Shelly Mendenhall [Primary Care Provider] -
[2017-09-06] MEDS: cefTRIAXone 1,000 MG in Water for inj. (sterile) 10 ML IVP SCH (16:20)
[2017-09-06] MEDS: Gabapentin 300 MG CAPSULE PO SCH (20:33)
--- NOTE | 2017-09-06 22:05 | Internal Med Progress Note ---
Date of Encounter: 09/06/17 Time of Encounter: 12:32 - Assessment and plan (1) Pancreatitis Current Visit: Yes Status: Acute Assessment and plan: Likely gallstone pancreatitis. Management per GI service. MRCP scheduled for today. NPO, with carefully given IV hydration. Antiemetics and pain medication as prn. Qualifiers: Chronicity: acute Pancreatitis type: unspecified pancreatitis type Acute pancreatitis complication: unspecified Qualified Code(s): K85.90 - Acute pancreatitis without necrosis or infection, unspecified (2) Abnormal LFTs Current Visit: Yes Status: Acute (3) Anemia Current Visit: Yes Status: Chronic Assessment and plan: Follow-up H&H, GI following and recs appreciated. Currently no signs of active bleed. If signs of active GIB, hold Plavix. She is s/p stents x2 >one year ago. Qualifiers: Anemia type: unspecified type Qualified Code(s): D64.9 - Anemia, unspecified (4) CAD (coronary artery disease) Current Visit: Yes Status: Chronic Assessment and plan: Continue plavix, statin, antihypertensives. Qualifiers: Coronary Disease-Associated Artery/Lesion type: [place] artery [place] vs. transplanted heart: [place] heart Associated angina: without angina Qualified Code(s): I25.10 - Atherosclerotic heart disease of [place] coronary artery without angina pectoris (5) CKD (chronic kidney disease) Current Visit: Yes Status: Chronic Assessment and plan: Medications are renally dosed. Avoid nephrotoxins. Judicious fluid hydration with serial lung exams to avoid fluid overload. Qualifiers: Chronic kidney disease stage: stage 3 (moderate) Qualified Code(s): N18.3 - Chronic kidney disease, stage 3 (moderate) (6) GERD (gastroesophageal reflux disease) Current Visit: Yes Status: Chronic Assessment and plan: Protonix IV Qualifiers: Esophagitis presence: esophagitis presence not specified Qualified Code(s) : K21.9 - Gastro-esophageal reflux disease without esophagitis (7) Type 2 diabetes mellitus Current Visit: No Status: Chronic Assessment and plan: ISS, diabetic diet when advancing diet. Qualifiers: Diabetes mellitus complication status: with unspecified complications Diabetes mellitus [employer] insulin use: without [employer] use Qualified Code( s): E11.8 - Type 2 diabetes mellitus with unspecified complications (8) Hypothyroidism Current Visit: No Status: Chronic Qualifiers: Hypothyroidism type: unspecified Qualified Code(s): E03.9 - Hypothyroidism , unspecified (9) Hypertension Current Visit: No Status: Chronic Qualifiers: Hypertension type: essential hypertension Qualified Code(s): I10 - Essential (primary) hypertension (10) DVT prophylaxis Current Visit: Yes Status: Acute Assessment and plan: SCD, Plavix (11) HTN (hypertension) Current Visit: Yes Status: Chronic Qualifiers: Hypertension type: essential hypertension Qualified Code(s): I10 - Essential (primary) hypertension (12) Thyroid disease Current Visit: Yes Status: Chronic (13) LISA (acute kidney injury) Current Visit: Yes Status: Resolved Assessment and plan: Resolved after IVF. May have been due to brief episode of hypotension leading to decreased renal perfusion. Will follow up. - Subjective Interval history: Patient has pain controlled. Complains mostly of abdominal fullness after drinking contrast, otherwise no complaints. She denies fevers/chills, vomiting , diarrhea, change in stools. - Constitutional Vitals: Temp Pulse Resp BP Pulse Ox 99.2 F 66 15 117/61 92 09/06/17 20:26 09/06/17 20:26 09/06/17 20:26 09/06/17 20:26 09/06/17 20:26 General appearance: Present: cooperative, mild distress, A&O X 3, pleasant, obese, answers questions appropriately Exam: CVS: RRR Lungs: Course breath sounds, good aeration of lung bases, no w/r/r Abd: soft, + Generalized tenderness mostly in mid epigastric region, no guarding , no rigidity. Normoactive bowel sounds Ext: no edema. Internal Medicine: Result - Labs CBC & Chem 7: 09/06/17 05:26 09/06/17 05:26 Labs: Short CBC 09/06/17 Range/Units 05:26 WBC 13.3 H (4.3-11.1) K/mcL Hgb 9.9 L (11.5-15.4) g/dL Hct 30.5 L (35.3-44.9) % Plt Count 122 L (140-400) K/mcL Neutrophils # 12.4 H (1.6-8.9) K/mcL BMP 09/06/17 05:26 Sodium 140 Potassium 4.4 Chloride 109 Carbon Dioxide 24 BUN 19 Creatinine 1.08 Glucose 148 H Calcium 8.4 L Liver Function 09/06/17 Range/Units 05:26 Total Bilirubin 2.0 H D (0.2-1.2) mg/dL AST 482 H (5-34) Units/L ALT 328 H (0-55) Units/L Alkaline Phosphatase 186 H (38-126) Units/L Albumin 2.5 L (3.5-5.0) g/dL - ABG Interpretation ABG results: PT/INR, D-dimer PT 11.8 Seconds (9.4-12.1) 09/06/17 05:26 - Impressions Impressions Abdomen MRI 09/06/17 09:47 IMPRESSION: 1. Trace free fluid adjacent to the spleen, potentially related to an inflammatory process such as pancreatitis given adjacent inflammatory stranding. Gastritis is an additional less likely consideration given proximity to the stomach. 2. Mild periportal edema and mild hepatomegaly, findings that can be seen with hepatitis. However, the hepatomegaly could be related to underlying mild to moderate hepatic steatosis. Additionally, periportal edema can be associated with additional etiologies such as volume overload. 3. Edematous gallbladder wall thickening along the gallbladder fossa only with no findings of cholelithiasis. This is felt most likely to be related to adjacent liver disease as opposed to cholecystitis. This could be further evaluated with a nuclear medicine hepatobiliary scan if there are clinical findings of cholecystitis. 4. Minimal to mild intrahepatic and mild extrahepatic biliary dilation most likely related to patient age addition, there is mild downstream pancreatic duct dilation. No further evaluation is recommended in the absence of clinical findings of cholestasis. 5. 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 Recommend pancreas protocol MRI or CT in 2 years per the ACR recommendations for incidental pancreatic cysts as below. 6. A few additional incidental findings as above for which no follow-up is recommended. RECOMMENDATIONS: Managing Incidental Pancreatic Cysts >=80 years at presentation, cyst size <=2.5 cm: Pancreas protocol MRI (or CT) in 2 years Reference: Jean et al. Management of incidental pancreatic cysts: a white paper of the ACR incidental findings committee. J Am Soheila Radiol 2017;14:[id number]. D/ / Kishor Gonzalez MD / Kishor Gonzalez MD Interpreting Provider: Kishor Gonzalez MD Consult Discharge Plan - Plan Referrals: Shelly Mendenhall [Primary Care Provider] -
[2017-09-07] MEDS: Insulin LISPRO 300 UNITS/3 ML VIAL SQ SCH ×4 (00:17→17:15)
[2017-09-07] MEDS: Levothyroxine 25 MCG TABLET PO SCH (05:49)
[2017-09-07 06:34] LABS: Basophils % 0.3 %; Eosinophils # 0.1 K/mcL (0.0-0.6); Eosinophils % 1.4 %; Hematocrit 30.3 % (35.3-44.9); Hemoglobin 9.4 g/dL (11.5-15.4); Immature Granulocytes % 0.5 % (0-4); Lymphocytes # 1.4 K/mcL (0.6-4.6); Lymphocytes % 20.9 %; Mean Corpuscular Volume 90.2 fL (83.0-100.0); Mean Platelet Volume 12.3 fL (9.4-12.4); Monocytes # 0.6 K/mcL (0.0-1.3); Monocytes % 8.9 %; Neutrophils # 4.4 K/mcL (1.6-8.9); Platelet Count 119 K/mcL (140-400); Red Blood Count 3.36 M/mcL (3.82-4.97); Red Cell Distribution Width 15.1 % (11.5-14.5)
[2017-09-07 06:51] LABS: Alanine Aminotransferase 230 Units/L (0-55); Albumin 2.5 g/dL (3.5-5.0); Albumin/Globulin Ratio 0.7 (1.1-2.2); Alkaline Phosphatase 194 Units/L (38-126); Aspartate Amino Transferase 144 Units/L (5-34); BUN/Creatinine Ratio 17 (6-26); Bilirubin,Total 0.7 mg/dL (0.2-1.2); Blood Urea Nitrogen 17 mg/dL (7-20); Calcium 8.2 mg/dL (8.6-10.8); Carbon Dioxide 24 mEq/L (19-29); Chloride 108 mEq/L (98-109); Globulin 3.5 g/dL (2.4-3.5); Glucose 89 mg/dL (70-99); Osmolality,Calculated 291 (280-300); Sodium 140 mEq/L (136-145); eGFR For African Americans > 60 (> 60); eGFR For Non-African Americans 51 (> 60)
[2017-09-07] MEDS: Pantoprazole 40 MG VIAL IVP SCH (08:13)
[2017-09-07] MEDS: Folic Acid 1 MG TABLET PO SCH (08:15)
[2017-09-07] MEDS: Isosorbide MONOnitrate (24 HR) 60 MG TAB.ER.24H PO SCH (08:15)
[2017-09-07] MEDS: Valsartan 160 MG TABLET PO SCH (08:15)
[2017-09-07] MEDS: amLODIPine 5 MG TABLET PO SCH (08:16)
[2017-09-07] MEDS ORDERED: Meropenem 1,000 MG in Water for inj. (sterile) 10 ML IVP SCH (10:00)
--- NOTE | 2017-09-07 10:01 | Internal Med Progress Note ---
Date of Encounter: 09/07/17 Time of Encounter: 10:02 - Assessment and plan (1) Pancreatitis Current Visit: Yes Status: Acute Assessment and plan: Resolved. Suspect this is hepatobiliary process given elevated LFTs and MRCP findings. MRCP findings: Some limit of study because of no IV contrast and patient motion. No gallstones/sludge/distention. Common duct 1.2 cm, no ductal filling defects or strictures. Fluid and stranding near spleen/pancreas c/w pancreatitis. Pancreatic duct no filling defects or strictures, moderate parenchymal atrophy, cystic lesions scattered in parenchyma. Hepatomegaly, hepatosteatosis, perioportal edema, possibly hepatitis/ liver disease. Plan: - ADAT then NPO at midnight - HIDA scan tomorrow AM, 09/08. - May resume advancing diet after HIDA scan done. - GI recs appreciated to see patient Sunday 09/09. Qualifiers: Chronicity: acute Pancreatitis type: unspecified pancreatitis type Acute pancreatitis complication: unspecified Qualified Code(s): K85.90 - Acute pancreatitis without necrosis or infection, unspecified (2) Abnormal LFTs Current Visit: Yes Status: Acute Assessment and plan: Resolved. Possibly from hepatic steatosis/hepatomegaly. Some MRCP findings suggestive of fluid overload. I did not appreciate fluid overload on my physical exam to support right heart failure. May consider an echocardiogram if suspicious for venous congestion and right heart failure. HIDA scan tomorrow (3) Urinary tract infection due to extended-spectrum beta lactamase (ESBL) producing Escherichia coli Current Visit: Yes Status: Acute Assessment and plan: Meropenem started. No signs of sepsis. She does not have a Hunt catheter, and no renal stones were appreciated on CT upon admission. She currently does not show sign of sepsis. She will need to have midline placed to go home with meropenem. Will treat for an additional 7-10 days after discharge. (4) Anemia Current Visit: Yes Status: Chronic Assessment and plan: Follow-up H&H, GI following and recs appreciated. Currently no signs of active bleed. If signs of active GIB, hold Plavix. She is s/p stents x2 >one year ago. Qualifiers: Anemia type: unspecified type Qualified Code(s): D64.9 - Anemia, unspecified (5) CAD (coronary artery disease) Current Visit: Yes Status: Chronic Assessment and plan: Continue plavix, statin, antihypertensives. Nuclear stress test done in the past year was negative for ischemia. Qualifiers: Coronary Disease-Associated Artery/Lesion type: [place] artery [place] vs. transplanted heart: [place] heart Associated angina: without angina Qualified Code(s): I25.10 - Atherosclerotic heart disease of [place] coronary artery without angina pectoris (6) CKD (chronic kidney disease) Current Visit: Yes Status: Chronic Assessment and plan: Medications are renally dosed. Avoid nephrotoxins. Judicious fluid hydration with serial lung exams to avoid fluid overload. Qualifiers: Chronic kidney disease stage: stage 3 (moderate) Qualified Code(s): N18.3 - Chronic kidney disease, stage 3 (moderate) (7) GERD (gastroesophageal reflux disease) Current Visit: Yes Status: Chronic Assessment and plan: Protonix IV Qualifiers: Esophagitis presence: esophagitis presence not specified Qualified Code(s) : K21.9 - Gastro-esophageal reflux disease without esophagitis (8) Type 2 diabetes mellitus Current Visit: No Status: Chronic Assessment and plan: ISS, diabetic diet when advancing diet. Qualifiers: Diabetes mellitus complication status: with unspecified complications Diabetes mellitus assisted insulin use: without special shopper use Qualified Code( s): E11.8 - Type 2 diabetes mellitus with unspecified complications (9) Hypothyroidism Current Visit: No Status: Chronic Qualifiers: Hypothyroidism type: unspecified Qualified Code(s): E03.9 - Hypothyroidism , unspecified (10) Hypertension Current Visit: No Status: Chronic Qualifiers: Hypertension type: essential hypertension Qualified Code(s): I10 - Essential (primary) hypertension (11) DVT prophylaxis Current Visit: Yes Status: Acute Assessment and plan: SCD, Plavix (12) Thyroid disease Current Visit: Yes Status: Chronic (13) LISA (acute kidney injury) Current Visit: Yes Status: Resolved Assessment and plan: Resolved after IVF. May have been due to brief episode of hypotension leading to decreased renal perfusion. Will follow up. - Subjective Interval history: Abdominal pain and nausea are resolved. She denies fevers/chills, n/v, diarrhea. Has good appetite and requests diet. . - Constitutional Vitals: Temp Pulse Resp BP Pulse Ox 99.6 F 72 16 112/61 94 09/07/17 04:26 09/07/17 04:26 09/07/17 04:26 09/07/17 04:26 09/07/17 04:26 General appearance: Present: cooperative, A&O X 3, pleasant, obese, answers questions appropriately Exam: CVS: RRR Lungs: CTAB Abd: Soft, NT/ND, normoactive bowel sounds. Ext: no edema Internal Medicine: Result - Labs CBC & Chem 7: 09/07/17 05:55 09/07/17 05:55 Labs: Short CBC 09/07/17 Range/Units 05:55 WBC 6.5 D (4.3-11.1) K/mcL Hgb 9.4 L (11.5-15.4) g/dL Hct 30.3 L (35.3-44.9) % Plt Count 119 L (140-400) K/mcL Neutrophils # 4.4 (1.6-8.9) K/mcL BMP 09/06/17 09/07/17 05:26 05:55 Sodium 140 140 Potassium 4.4 4.0 Chloride 109 108 Carbon Dioxide 24 24 BUN 19 17 Creatinine 1.08 1.03 Glucose 148 H 89 Calcium 8.4 L 8.2 L Liver Function 09/06/17 09/07/17 Range/Units 05:26 05:55 Total Bilirubin 2.0 H D 0.7 (0.2-1.2) mg/dL AST 482 H 144 H (5-34) Units/L ALT 328 H 230 H (0-55) Units/L Alkaline Phosphatase 186 H 194 H (38-126) Units/L Albumin 2.5 L 2.5 L (3.5-5.0) g/dL - ABG Interpretation ABG results: PT/INR, D-dimer PT 11.8 Seconds (9.4-12.1) 09/06/17 05:26 - Impressions Impressions Abdomen MRI 09/06/17 09:47 IMPRESSION: 1. Trace free fluid adjacent to the spleen, potentially related to an inflammatory process such as pancreatitis given adjacent inflammatory stranding. Gastritis is an additional less likely consideration given proximity to the stomach. 2. Mild periportal edema and mild hepatomegaly, findings that can be seen with hepatitis. However, the hepatomegaly could be related to underlying mild to moderate hepatic steatosis. Additionally, periportal edema can be associated with additional etiologies such as volume overload. 3. Edematous gallbladder wall thickening along the gallbladder fossa only with no findings of cholelithiasis. This is felt most likely to be related to adjacent liver disease as opposed to cholecystitis. This could be further evaluated with a nuclear medicine hepatobiliary scan if there are clinical findings of cholecystitis. 4. Minimal to mild intrahepatic and mild extrahepatic biliary dilation most likely related to patient age addition, there is mild downstream pancreatic duct dilation. No further evaluation is recommended in the absence of clinical findings of cholestasis. 5. 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 Recommend pancreas protocol MRI or CT in 2 years per the ACR recommendations for incidental pancreatic cysts as below. 6. A few additional incidental findings as above for which no follow-up is recommended. RECOMMENDATIONS: Managing Incidental Pancreatic Cysts >=80 years at presentation, cyst size <=2.5 cm: Pancreas protocol MRI (or CT) in 2 years Reference: Jean et al. Management of incidental pancreatic cysts: a white paper of the ACR incidental findings committee. J Am Soheila Radiol 2017;14:[id number]. D/ / Kishor Gonzalez MD / Kishor Gonzalez MD Interpreting Provider: Kishor Gonzalez MD Consult Discharge Plan - Plan Referrals: Shelly Mendenhall [Primary Care Provider] -
[2017-09-07] MEDS: Ringers Solution, Lactated 1,000 ML IVC SCH ×2 (12:28→16:07)
[2017-09-07 13:39] LABS: Hepatitis B Surface Antigen Nonreactive (Nonreactive)
[2017-09-07] MEDS: Acetaminophen 325 MG TABLET PO PRN (20:51)
[2017-09-07] MEDS: Gabapentin 300 MG CAPSULE PO SCH (20:52)
[2017-09-08 05:03] LABS: Basophils % 0.3 %; Eosinophils # 0.1 K/mcL (0.0-0.6); Eosinophils % 1.6 %; Hematocrit 31.7 % (35.3-44.9); Hemoglobin 10.1 g/dL (11.5-15.4); Immature Granulocytes % 0.5 % (0-4); Lymphocytes # 1.3 K/mcL (0.6-4.6); Lymphocytes % 20.7 %; Mean Corpuscular HGB Conc 31.9 g/dL (31.6-35.5); Mean Corpuscular Hemoglobin 28.4 pg (28.0-33.3); Mean Platelet Volume 11.7 fL (9.4-12.4); Monocytes # 0.7 K/mcL (0.0-1.3); Monocytes % 10.7 %; Neutrophils # 4.1 K/mcL (1.6-8.9); Platelet Count 123 K/mcL (140-400); Red Blood Count 3.56 M/mcL (3.82-4.97); Red Cell Distribution Width 14.6 % (11.5-14.5); Segmented Neutrophils % 66.2 %
[2017-09-08 05:16] LABS: Alanine Aminotransferase 158 Units/L (0-55); Albumin 2.6 g/dL (3.5-5.0); Albumin/Globulin Ratio 0.7 (1.1-2.2); Alkaline Phosphatase 178 Units/L (38-126); Aspartate Amino Transferase 65 Units/L (5-34); BUN/Creatinine Ratio 16 (6-26); Bilirubin,Total 0.6 mg/dL (0.2-1.2); Blood Urea Nitrogen 15 mg/dL (7-20); Calcium 8.5 mg/dL (8.6-10.8); Carbon Dioxide 25 mEq/L (19-29); Chloride 105 mEq/L (98-109); Globulin 3.8 g/dL (2.4-3.5); Glucose 102 mg/dL (70-99); Osmolality,Calculated 291 (280-300); Potassium 3.9 mEq/L (3.5-4.5); Sodium 140 mEq/L (136-145); Total Protein 6.4 g/dL (6.0-8.3); eGFR For African Americans > 60 (> 60); eGFR For Non-African Americans 57 (> 60)
[2017-09-08] MEDS: Meropenem 1,000 MG in Water for inj. (sterile) 10 ML IVP SCH ×3 (05:34→23:36)
[2017-09-08] MEDS: Insulin LISPRO 300 UNITS/3 ML VIAL SQ SCH ×4 (05:35→18:51)
[2017-09-08] MEDS: Levothyroxine 25 MCG TABLET PO SCH (05:44)
[2017-09-08] MEDS: Ringers Solution, Lactated 1,000 ML IVC SCH ×3 (05:44→23:37)
[2017-09-08] MEDS: amLODIPine 5 MG TABLET PO SCH (09:32)
[2017-09-08] MEDS: Isosorbide MONOnitrate (24 HR) 60 MG TAB.ER.24H PO SCH (09:32)
[2017-09-08] MEDS: Valsartan 160 MG TABLET PO SCH (09:32)
[2017-09-08] MEDS: Folic Acid 1 MG TABLET PO SCH (09:33)
[2017-09-08] MEDS: Pantoprazole 40 MG VIAL IVP SCH (09:33)
--- NOTE | 2017-09-08 20:56 | Internal Med Progress Note ---
Date of Encounter: 09/08/17 Time of Encounter: 09:53 - Assessment and plan (1) Pancreatitis Current Visit: Yes Status: Acute Assessment and plan: Resolved. Suspect cause is hepatobiliary process given elevated LFTs and MRCP findings. MRCP study had some limit because of no IV and patient motion. Did not visualize gallstones/sludge/distention. Did note Hepatomegaly, hepatosteatosis , perioportal edema, possibly hepatitis/ liver disease. Plan: Advance diet - HIDA scan planned for 09/09. - Appreciate GI recs Qualifiers: Chronicity: acute Pancreatitis type: unspecified pancreatitis type Acute pancreatitis complication: unspecified Qualified Code(s): K85.90 - Acute pancreatitis without necrosis or infection, unspecified (2) Hepatomegaly Current Visit: Yes Status: Acute Assessment and plan: as seen on MRCP (3) Urinary tract infection due to extended-spectrum beta lactamase (ESBL) producing Escherichia coli Current Visit: Yes Status: Acute Assessment and plan: Meropenem started. No signs of sepsis. Needs midline placed to go home with meropenem. (4) Abnormal LFTs Current Visit: Yes Status: Acute (5) Anemia Current Visit: Yes Status: Chronic Qualifiers: Anemia type: unspecified type Qualified Code(s): D64.9 - Anemia, unspecified (6) CAD (coronary artery disease) Current Visit: Yes Status: Chronic Qualifiers: Coronary Disease-Associated Artery/Lesion type: [place] artery [place] vs. transplanted heart: [place] heart Associated angina: without angina Qualified Code(s): I25.10 - Atherosclerotic heart disease of [place] coronary artery without angina pectoris (7) CKD (chronic kidney disease) Current Visit: Yes Status: Chronic Qualifiers: Chronic kidney disease stage: stage 3 (moderate) Qualified Code(s): N18.3 - Chronic kidney disease, stage 3 (moderate) (8) GERD (gastroesophageal reflux disease) Current Visit: Yes Status: Chronic Qualifiers: Esophagitis presence: esophagitis presence not specified Qualified Code(s) : K21.9 - Gastro-esophageal reflux disease without esophagitis (9) Type 2 diabetes mellitus Current Visit: No Status: Chronic Qualifiers: Diabetes mellitus complication status: with unspecified complications Diabetes mellitus senior living insulin use: without senior living use Qualified Code( s): E11.8 - Type 2 diabetes mellitus with unspecified complications (10) Hypothyroidism Current Visit: No Status: Chronic Qualifiers: Hypothyroidism type: unspecified Qualified Code(s): E03.9 - Hypothyroidism , unspecified (11) Hypertension Current Visit: No Status: Chronic Qualifiers: Hypertension type: essential hypertension Qualified Code(s): I10 - Essential (primary) hypertension (12) DVT prophylaxis Current Visit: Yes Status: Acute (13) Thyroid disease Current Visit: Yes Status: Chronic (14) LISA (acute kidney injury) Current Visit: Yes Status: Resolved - Subjective Interval history: Abdominal pain and nausea are resolved. Tolerated CLQ yesterday. She denies fevers/chills, n/v, diarrhea. . - Constitutional Vitals: Temp Pulse Resp BP Pulse Ox 98.3 F 68 15 123/61 94 09/08/17 19:55 09/08/17 19:55 09/08/17 19:55 09/08/17 19:55 09/08/17 19:55 General appearance: Present: cooperative, A&O X 3, pleasant, obese, answers questions appropriately Exam: CVS: RRR Lungs: CTAB Abd: NT/ND, normoactive bowel sounds Ext: no edema Internal Medicine: Result - Labs CBC & Chem 7: 09/08/17 04:52 09/08/17 04:52 Labs: Short CBC 09/08/17 Range/Units 04:52 WBC 6.2 (4.3-11.1) K/mcL Hgb 10.1 L (11.5-15.4) g/dL Hct 31.7 L (35.3-44.9) % Plt Count 123 L (140-400) K/mcL Neutrophils # 4.1 (1.6-8.9) K/mcL BMP 09/08/17 04:52 Sodium 140 Potassium 3.9 Chloride 105 Carbon Dioxide 25 BUN 15 Creatinine 0.94 Glucose 102 H Calcium 8.5 L Liver Function 09/08/17 Range/Units 04:52 Total Bilirubin 0.6 (0.2-1.2) mg/dL AST 65 H (5-34) Units/L ALT 158 H (0-55) Units/L Alkaline Phosphatase 178 H (38-126) Units/L Albumin 2.6 L (3.5-5.0) g/dL - ABG Interpretation ABG results: PT/INR, D-dimer PT 11.8 Seconds (9.4-12.1) 09/06/17 05:26 - Impressions Impressions Abdomen Ultrasound 09/05/17 18:00 IMPRESSION: 1. Dilation of the common bile duct, measuring 1.1 cm in diameter. No identifiable cause. 2. Mild distention of the gallbladder. No identifiable stone or evidence of sonographic Blev[place] sign. If clinical concern persists for acalculous cholecystitis, consider HIDA scan. D/ / 09/05/2017 18:40:42 Anatoliy Langley MD / alley Interpreting Provider: Anatoliy Langley MD - VTE Documentation of Mechanical Device: Intermittent pneumatic compression device Consult Discharge Plan - Plan Referrals: Shelly Mendenhall [Primary Care Provider] -
[2017-09-08] MEDS: Gabapentin 300 MG CAPSULE PO SCH (23:35)
[2017-09-09 04:05] VITALS: BP 124/69
[2017-09-09 05:49] LABS: Basophils % 0.3 %; Eosinophils # 0.1 K/mcL (0.0-0.6); Eosinophils % 1.7 %; Hematocrit 32.1 % (35.3-44.9); Hemoglobin 10.4 g/dL (11.5-15.4); Immature Granulocytes % 0.7 % (0-4); Lymphocytes # 1.6 K/mcL (0.6-4.6); Lymphocytes % 21.8 %; Mean Corpuscular HGB Conc 32.4 g/dL (31.6-35.5); Mean Corpuscular Hemoglobin 28.5 pg (28.0-33.3); Mean Corpuscular Volume 87.9 fL (83.0-100.0); Mean Platelet Volume 12.2 fL (9.4-12.4); Monocytes # 0.7 K/mcL (0.0-1.3); Neutrophils # 4.7 K/mcL (1.6-8.9); Platelet Count 137 K/mcL (140-400); Red Blood Count 3.65 M/mcL (3.82-4.97); Red Cell Distribution Width 14.6 % (11.5-14.5); Segmented Neutrophils % 65.5 %
[2017-09-09 06:19] LABS: Albumin 2.7 g/dL (3.5-5.0); Albumin/Globulin Ratio 0.7 (1.1-2.2); Bilirubin,Total 0.4 mg/dL (0.2-1.2); Calcium 8.4 mg/dL (8.6-10.8); Globulin 3.8 g/dL (2.4-3.5); Potassium 3.7 mEq/L (3.5-4.5); Total Protein 6.5 g/dL (6.0-8.3)
--- NOTE | 2017-09-09 08:44 | Discharge Summary ---
Date of Encounter: 09/09/17 Time of Encounter: 08:42 - Discharge Diagnosis (1) Pancreatitis Priority: Primary Status: Acute Qualifiers: Chronicity: acute Pancreatitis type: unspecified pancreatitis type Acute pancreatitis complication: unspecified Qualified Code(s): K85.90 - Acute pancreatitis without necrosis or infection, unspecified (2) Urinary tract infection due to extended-spectrum beta lactamase (ESBL) producing Escherichia coli Priority: Secondary Status: Acute (3) Hepatomegaly Priority: Secondary Status: Acute (4) Abnormal LFTs Priority: Secondary Status: Acute (5) Anemia Priority: Secondary Status: Chronic Qualifiers: Anemia type: unspecified type Qualified Code(s): D64.9 - Anemia, unspecified (6) CAD (coronary artery disease) Priority: Secondary Status: Chronic Qualifiers: Coronary Disease-Associated Artery/Lesion type: [place] artery [place] vs. transplanted heart: [place] heart Associated angina: without angina Qualified Code(s): I25.10 - Atherosclerotic heart disease of [place] coronary artery without angina pectoris (7) CKD (chronic kidney disease) Priority: Secondary Status: Chronic Qualifiers: Chronic kidney disease stage: stage 3 (moderate) Qualified Code(s): N18.3 - Chronic kidney disease, stage 3 (moderate) (8) GERD (gastroesophageal reflux disease) Priority: Secondary Status: Chronic Qualifiers: Esophagitis presence: esophagitis presence not specified Qualified Code(s) : K21.9 - Gastro-esophageal reflux disease without esophagitis (9) Type 2 diabetes mellitus Priority: Secondary Status: Chronic Qualifiers: Diabetes mellitus complication status: with unspecified complications Diabetes mellitus alf insulin use: without termination clerk use Qualified Code( s): E11.8 - Type 2 diabetes mellitus with unspecified complications (10) Hypothyroidism Priority: Secondary Status: Chronic Qualifiers: Hypothyroidism type: unspecified Qualified Code(s): E03.9 - Hypothyroidism , unspecified (11) Hypertension Priority: Secondary Status: Chronic Qualifiers: Hypertension type: essential hypertension Qualified Code(s): I10 - Essential (primary) hypertension (12) DVT prophylaxis Priority: Secondary Status: Acute (13) Thyroid disease Priority: Secondary Status: Chronic (14) LISA (acute kidney injury) Priority: Secondary Status: Resolved - Discharge Medications Home Medications: Amlodipine Besylate 10 mg PO DAILY 03/20/17 [History] Antiox #11/Om3/Dha/Epa/Lut/Linh [50+ Adult Eye Health Softgel] 1 cap PO BID 03/20 [History] Carvedilol [Coreg] 25 mg PO BID 03/20/17 [History] Clopidogrel [Plavix] 75 mg PO DAILY 03/20/17 [History] Ergocalciferol (VITAMIN D2) [Vitamin D2] 50,000 unit PO QWEEK 03/20/17 [History] Gabapentin [Neurontin] 300 mg PO HS 03/20/17 [History] GlipiZIDE [Glipizide Xl] 5 mg PO BID 03/20/17 [History] Iron Polysaccharide Complex [Pro Fe] 180 mg PO DAILY 03/20/17 [History] Isosorbide MONOnitrate (24 HR) [Imdur] 60 mg PO DAILY 03/20/17 [History] Levothyroxine [Synthroid] 25 mcg PO DAILY 03/20/17 [History] Simvastatin [Zocor] 10 mg PO DAILY 03/20/17 [History] Valsartan [Diovan] 160 mg PO DAILY 03/20/17 [History] Cyanocobalamin (B-12) [Vitamin B12] 1,000 mcg PO DAILY #30 tablet 05/27/17 [Rx] Cyclobenzaprine [Flexeril] 10 mg PO TID PRN #21 tablet 05/27/17 [Rx] Pantoprazole Sodium [Protonix] 40 mg PO DAILY #30 tablet. 05/27/17 [Rx] Omeprazole [PriLOSEC] 20 mg PO DAILY 09/05/17 [History] Allergies/Adverse Reactions: 3 Allergy/AdvReac Type Severity Reaction Status Date / Time atorvastatin [From Lipitor] AdvReac See Verified 09/05/17 09:16 Comments propoxyphene AdvReac Nausea Verified 09/05/17 09:16 [From Darvocet-N] Procedures/tests Complete & Pending: Procedures Performed prior 72 hours Category Date Time Status NM hepatobiliary w drug [NM] Routine Exams 09/08/17 20:51 Taken MR MRCP [MR abdomen wo con] [MR] Stat MRI 09/06/17 09:47 Completed Date of admission: 09/05/17 14:03 Primary care physician: Shelly Mendenhall Consults: 09/05/17 15:13 Consult to Gastroenterology [CONS] Routine Consulting Provider: Gastroenterology Nella Reason for Consult: Patient presents with abdominal pain in RUQ and RLQ that began this morning. Pt. reports nausea w/eating. Lipase 8118. Amylase ordered. NPO except for necessary medications. IV Ringers lactate. US of abdomen/pelvis ordered. Call Completed: Yes 09/07/17 18:32 Consult to Invasive Line Access Team [CONS] Routine Reason for Consult: discharge planning for IV therapy. Will need meropenum for total of 10 days. First dose started 09/07/17. Powerglide is ok if appropriate for medication/insurance. Line Type: EPIV PICC line indications: shelter Med/Antibiotic Discharging clinician: Geo Mirza - Patient Status Disposition: Home, Self-Care Condition: Fair Functional capacity at discharge: independent ambulation Overall status at discharge: patient is progressing back to baseline - Discharge Instructions Follow Up With: Shelly Mendenhall [Primary Care Provider] - - Diet and Activity Activity: increase activity as tolerated Diet: advance to your usual diet Hospital course: Ms. Alexander is a 82 year old female with past medical history of diabetes, hypertension, coronary artery disease, and thyroid disease presented to ED with chief complaint of right upper quadrant abdominal pain, weakness, dizziness that began on day of admission. Patient also complained of nausea after eating toast but did not have any vomiting. Has never had any symptoms like this in the past. She does have chronic anemia. She denied any fevers chills or headache cough congestion constipation change in stool and lightheadedness. The patient was found to be elevated at 8118. Her LFTs were elevated as well. CT of the abdomen and pelvis without contrast showed no acute findings of the abdomen to account for patient's abdominal pain. His chronic mild prominence of the intrahepatic bile ducts that is not significantly changed since February 2017. Also showed mild distention of the gallbladder, sigmoid diverticulosis without any diverticulitis. A urinalysis was consistent with urinary tract infection, cultures were sent and she was started on Rocephin. Cultures of urine came back positive for ESBL Escherichia coli, and she was then placed on meropenem. Patient was made nothing by mouth, given IV fluids and surgery was consulted. There was high suspicion for gallstone pancreatitis. A right upper quadrant ultrasound again showed mild distention of gallbladder with no stone and dilation of the common bile duct. An MRCP was also negative as well as a HIDA scan which essentially ruled out a calculus cholecystitis. Since lipase trended down and she was able to tolerate food without issue. She had no pain, no nausea, no vomiting. She had home IV meropenem set up this to finish a 7 day course as she has received 3 days' worth of meropenem here to complete a total of 10 days. She was discharged home l in stable condition. - Time Spent with Patient Total time spent providing and/or coordinating discharge services: - Constitutional Vitals: Temp Pulse Resp BP Pulse Ox 98.3 F 69 15 124/69 93 09/09/17 04:01 09/09/17 04:01 09/09/17 04:01 09/09/17 04:01 09/09/17 04:01 General appearance: Present: cooperative, A&O X 3, pleasant, answers questions appropriately Exam: CVS: RRR Lungs: CTAB Abd: NT/ND, normoactive bowel sounds Ext: no edema - VTE Documentation of Mechanical Device: Intermittent pneumatic compression device
[2017-09-09] MEDS: Pantoprazole 40 MG VIAL IVP SCH (09:04)
[2017-09-09] MEDS: Isosorbide MONOnitrate (24 HR) 60 MG TAB.ER.24H PO SCH (09:04)
[2017-09-09] MEDS: Valsartan 160 MG TABLET PO SCH (09:04)
[2017-09-09] MEDS: amLODIPine 5 MG TABLET PO SCH (09:11)
[2017-09-09] MEDS: Folic Acid 1 MG TABLET PO SCH (09:12)
[2017-09-09] MEDS: Meropenem 1,000 MG in Water for inj. (sterile) 10 ML IVP SCH (09:12)
[2017-09-09] MEDS: Levothyroxine 25 MCG TABLET PO SCH (09:13)
[2017-09-09] MEDS: Insulin LISPRO 300 UNITS/3 ML VIAL SQ SCH ×2 (09:14→09:27)
--- NOTE | 2017-09-09 09:29 | Physician Discharge Referral ---
Home Health/Hosp Referral Info Transfer to: Home Health - Diagnosis (1) Pancreatitis Priority: Primary Status: Acute (2) Urinary tract infection due to extended-spectrum beta lactamase (ESBL) producing Escherichia coli Priority: Secondary Status: Acute (3) Hepatomegaly Priority: Secondary Status: Acute (4) Abnormal LFTs Priority: Secondary Status: Acute (5) Anemia Priority: Secondary Status: Chronic (6) CAD (coronary artery disease) Priority: Secondary Status: Chronic (7) CKD (chronic kidney disease) Priority: Secondary Status: Chronic (8) GERD (gastroesophageal reflux disease) Priority: Secondary Status: Chronic (9) Type 2 diabetes mellitus Priority: Secondary Status: Chronic (10) Hypothyroidism Priority: Secondary Status: Chronic (11) Hypertension Priority: Secondary Status: Chronic (12) DVT prophylaxis Priority: Secondary Status: Acute (13) Thyroid disease Priority: Secondary Status: Chronic (14) LISA (acute kidney injury) Priority: Secondary Status: Resolved - Respiratory Orders Smoking Cessation: Smoking cessation has been advised. For more information, call the [employer] Tobacco Quit Line at 1-817-BUTQ-NOW. - Dressing/Wound Care Site: IV - Diet/Nutrition Diet/Nutrition Orders: Cardiac, No Concentrated Sweets - Activity Activity Orders: Up ad wyatt - Services Needed Following services are medically necessary services: Nursing, Home Infusion Home Care Orders: IV management of Miropenem for 7 days. - Transfer Medications Home Medications: Amlodipine Besylate 10 mg PO DAILY 03/20/17 [History] Antiox #11/Om3/Dha/Epa/Lut/Linh [50+ Adult Eye Health Softgel] 1 cap PO BID 03/20 [History] Carvedilol [Coreg] 25 mg PO BID 03/20/17 [History] Clopidogrel [Plavix] 75 mg PO DAILY 03/20/17 [History] Ergocalciferol (VITAMIN D2) [Vitamin D2] 50,000 unit PO QWEEK 03/20/17 [History] Gabapentin [Neurontin] 300 mg PO HS 03/20/17 [History] GlipiZIDE [Glipizide Xl] 5 mg PO BID 03/20/17 [History] Iron Polysaccharide Complex [Pro Fe] 180 mg PO DAILY 03/20/17 [History] Isosorbide MONOnitrate (24 HR) [Imdur] 60 mg PO DAILY 03/20/17 [History] Levothyroxine [Synthroid] 25 mcg PO DAILY 03/20/17 [History] Simvastatin [Zocor] 10 mg PO DAILY 03/20/17 [History] Valsartan [Diovan] 160 mg PO DAILY 03/20/17 [History] Cyanocobalamin (B-12) [Vitamin B12] 1,000 mcg PO DAILY #30 tablet 05/27/17 [Rx] Cyclobenzaprine [Flexeril] 10 mg PO TID PRN #21 tablet 05/27/17 [Rx] Pantoprazole Sodium [Protonix] 40 mg PO DAILY #30 tablet. 05/27/17 [Rx] Omeprazole [PriLOSEC] 20 mg PO DAILY 09/05/17 [History] Allergies/Adverse Reactions: 3 Allergy/AdvReac Type Severity Reaction Status Date / Time atorvastatin [From Lipitor] AdvReac See Verified 09/05/17 09:16 Comments propoxyphene AdvReac Nausea Verified 09/05/17 09:16 [From Kirsten] Certification: Further, I certify that my clinical findings support that this patient is homebound (i.e. absences from home require considerable and taxing effort and are for medical reasons or jain services or infrequently or short duration when for other reasons) because: Homebound Reason: Patient requires assistance of a person or device to safely leave home (IV) Attestation: My signature below is to certify that this patient is under my care and that I, or nurse practitioner, or a physician's personalized living assistant working with me, has a face-to -face encounter with this patient.
[2017-09-09 10:58] LABS: Hepatitis A Antibody IgM Nonreactive (Nonreactive); Hepatitis B Core IgM Nonreactive (Nonreactive); Hepatitis C Virus Antibody Nonreactive (Nonreactive)
[2017-09-09] MEDS: Ringers Solution, Lactated 1,000 ML IVC SCH (13:16)
== END 2017-09-09 14:06 | disposition home or self-care (01) | DRG 689 ==
LOC: 3ANU 09:13 → EMEROO 09:13 → 3ANU 13:18
PROVIDERS: ADMIT Internal Medicine; ATTEND Student in an Organized Health Care Education/Training Program

== ENCOUNTER 2019-08-03 14:05 | Observation (INO) ==
[2019-08-03] MEDS ORDERED: Insulin LISPRO 300 UNITS/3 ML VIAL SQ SCH (21:00)
[2019-08-03] MEDS: *HR* Heparin 5,000 UNIT/ML VIAL SQ SCH (21:52)
[2019-08-04] MEDS: *HR* Heparin 5,000 UNIT/ML VIAL SQ SCH (05:36)
[2019-08-04 05:55] LABS: Basophils % 0.3 %; Eosinophils # 0.1 K/mcL (0.0-0.6); Eosinophils % 1.8 %; Hematocrit 32.8 % (35.3-44.9); Hemoglobin 10.5 g/dL (11.5-15.4); Immature Granulocytes % 0.3 % (0-4); Lymphocytes # 1.9 K/mcL (0.6-4.6); Lymphocytes % 25.2 %; Mean Corpuscular Volume 90.6 fL (83.0-100.0); Mean Platelet Volume 12.4 fL (9.4-12.4); Monocytes # 0.6 K/mcL (0.0-1.3); Monocytes % 7.2 %; Platelet Count 138 K/mcL (140-400); Red Blood Count 3.62 M/mcL (3.82-4.97); Segmented Neutrophils % 65.2 %; White Blood Count 7.7 K/mcL (4.3-11.1)
[2019-08-04 06:18] LABS: Alanine Aminotransferase 12 Units/L (7-52); Albumin 3.4 g/dL (3.5-5.7); Albumin/Globulin Ratio 1.1 (1.1-2.2); Alkaline Phosphatase 80 Units/L (34-104); Aspartate Amino Transferase 14 Units/L (13-39); BUN/Creatinine Ratio 16 (6-26); Bilirubin,Total 0.3 mg/dL (0.3-1.0); Blood Urea Nitrogen 16 mg/dL (8-23); Calcium 9.2 mg/dL (8.6-10.3); Carbon Dioxide 24 mEq/L (23-29); Chloride 105 mEq/L (98-107); Globulin 3.1 g/dL (2.4-3.5); Glucose 123 mg/dL (70-105); Magnesium 1.6 mg/dL (1.6-2.6); Osmolality,Calculated 289 (280-300); Potassium 4.2 mEq/L (3.5-5.1); Sodium 138 mEq/L (136-145); Total Protein 6.5 g/dL (6.4-8.9); eGFR For African Americans > 60 (> 60); eGFR For Non-African Americans 52 (> 60)
[2019-08-04] MEDS ORDERED: Levothyroxine 25 MCG TABLET PO SCH (06:30)
[2019-08-04] MEDS: Insulin LISPRO 300 UNITS/3 ML VIAL SQ SCH ×2 (07:23→12:23)
[2019-08-04 08:00] LABS: Estimated Average Glucose 131 mg/dl
[2019-08-04] MEDS ORDERED: Isosorbide MONOnitrate (24 HR) 60 MG TAB.ER.24H PO SCH (09:00)
[2019-08-04] MEDS ORDERED: amLODIPine 5 MG TABLET PO SCH (09:00)
[2019-08-04 10:18] LABS: Folate 19.2 ng/mL (3.0-16.0)
[2019-08-04 12:06] VITALS: BP 118/64
[2019-08-04] MEDS ORDERED: Cyanocobalamin (B-12) 1,000 MCG/ML VIAL IM ONE (14:16)
== END 2019-08-04 15:35 | disposition home or self-care (01) ==
LOC: 3BNU → SUATTDRO 17:05
PROVIDERS: ADMIT Internal Medicine; ATTEND Internal Medicine